=== PATIENT | female | born 1950 | race Caucasian/White ===

== ENCOUNTER 2020-05-02 15:46 | Inpatient (IN) | payer MEDICARE, OTHER ==
--- NOTE | 2020-05-02 17:31 | EDM.PDOC ---
ED HPI GENERAL MEDICAL PROBLEM - General Chief Complaint: Abdominal Pain Stated Complaint: LOWER ABDOMINAL PAIN AND BLEEDING Time Seen by Provider: 05/02/20 17:00 Source of Information: Reports: Patient, Family (), RN - History of Present Illness INITIAL COMMENTS - FREE TEXT/NARRATIVE: Milly presents with to ER for acute left mid abdominal pain. Milly has slight twisting pain last night when she was washing her feet. Milly was able to sleep last night and was scheduled for an Endoscopy this am. Milly had recurrence of her left mid/lower abdominal pain this am but proceeded to [place] for EGD. Milly ate breakfast around 10:30 in [place] after her procedure and report pain was much improved after EGD sedation. Milly had recurrence of severe pain in left mid and lower abdomen while driving home from [place] to [facility]. Milly has had numerous episodes of blood in her stool today (bright red/large amount per patient) with reported of looser BM this am without blood. Milly is a very poor historian and unable to give much for history due to pain, general weakness fatigue and feeling cold. is a very poor historian. Milly reports nausea without vomiting, weakness, feeling cold and left lower abdominal pain. Milly has had similar pain in the past but has resolved the 4-5 times in the past but has resolved. Milly has had numerous abdominal surgeries including: Hysterectomy w. oophorectomy, gallbladder removal, colon resection on 2014 due to diverticulosis, appendix removed and multiple bladder surgeries. Milly has chronic UTI on Macrodantin for prevention of infection. Milly was treated with Macrobid on Apr 23 for UTI x 7 days which improved her symptoms but has not offered resolution with continued urinary frequency. Abdominal Pain Score (Numeric/FACES): 9 - Related Data Allergies Allergy/AdvReac Type Severity Reaction Status Date / Time codeine Allergy Unknown Unknown Verified 05/02/20 16:41 adhesive Allergy Rash Verified 05/02/20 18:30 adhesive tape Allergy Rash Verified 05/02/20 18:30 latex Allergy Rash Verified 05/02/20 18:30 METALS Allergy Cannot Uncoded 05/02/20 18:30 Remember Home Meds: Home Meds Acetaminophen/HYDROcodone [[place] 325-5 MG] 1 - 2 tab PO Q6H PRN 5 Days #20 tab 05/02/20 [Rx] Aspirin [Low Dose Aspirin EC] 81 mg PO DAILY 05/02/20 [History] Doxycycline [Doxycycline Hyclate] 100 mg PO ASDIRECTED 05/02/20 [History] Levothyroxine [Synthroid] 88 mcg PO ACBREAKFAST 05/02/20 [History] amLODIPine Besylate [Amlodipine Besylate] 5 mg PO DAILY 05/02/20 [History] amLODIPine [Norvasc] 5 mg PO DAILY 05/02/20 [History] atenoloL [Atenolol] 50 mg PO DAILY 05/02/20 [History] atorvaSTATin [Lipitor] 10 mg PO BEDTIME 05/02/20 [History] lisinopriL [Prinivil] 20 mg PO BID 05/02/20 [History] nitrofurantoin macrocrystaL [Nitrofurantoin] 50 mg PO DAILY 05/02/20 [History] Past Medical History HEENT History: Reports: Cataract, Other (See Below) Other HEENT History: dry eye Cardiovascular History: Reports: High Cholesterol, Hypertension Respiratory History: Reports: None Gastrointestinal History: Reports: Cholelithiasis, Diverticulosis, GERD, Irritable Bowel Syndrome, PUD, Other (See Below) Other Gastrointestinal History: prolapsed rectum Genitourinary History: Reports: Urinary Incontinence, UTI, Recurrent, Other (See Below) Other Genitourinary History: chronic cystitis TRANSPORTATION ENGINEER History: Reports: Dysfunctional Uterine Bleeding, Fibroids, Prolapsed Uterus Musculoskeletal History: Reports: Arthritis, Back Pain, Chronic, Other (See Below) Other Musculoskeletal History: lumbar stenosis Psychiatric History: Reports: None Endocrine/Metabolic History: Reports: Hypothyroidism Hematologic History: Reports: Bleeding Disorder Immunologic History: Reports: None Oncologic (Cancer) History: Reports: None Dermatologic History: Reports: Other (See Below) Other Dermatologic History: rosacea - Infectious Disease History Infectious Disease History: Reports: None - Past Surgical History HEENT Surgical History: Reports: Adenoidectomy, Tonsillectomy GI Surgical History: Reports: Appendectomy, Cholecystectomy, Colon, Colonoscopy, EGD Other GI Surgeries/Procedures: colectomy 6 inches Female Surgical History: Reports: Hysterectomy, Salpingo-Oophorectomy Endocrine Surgical History: Reports: Thyroidectomy Neurological Surgical History: Reports: Lumbar Spine, Spinal Fusion Musculoskeletal Surgical History: Reports: Hip Replacement Other Musculoskeletal Surgeries/Procedures:: bilateral hips Social & Family History - Tobacco Use Smoking Status *Q: Former Smoker Used Tobacco, but Quit: Yes Month/Year Tobacco Last Used: years - Caffeine Use Caffeine Use: Reports: Coffee Caffeine Use Comment: occ - Recreational Drug Use Recreational Drug Use: No ED ROS GENERAL - Review of Systems Review Of Systems: Unable To Obtain (slwo to respond and is a very poor historian) Reason Not Obtained: acute illness/pain concerns ED EXAM, GI/ABD - Physical Exam Exam: See Below Exam Limited By: Other (slow to respond) General Appearance: Alert, WD/WN, Anxious, Lethargic, Mild Distress Eyes: Bilateral: Normal Appearance, EOMI Ears: Normal External Exam, Hearing Grossly Normal Nose: Normal Inspection Throat/Mouth: Normal Inspection, Normal Voice, No Airway Compromise Head: Normocephalic Neck: Normal Inspection Respiratory/Chest: Lungs Clear, Normal Breath Sounds Cardiovascular: Regular Rate, Rhythm, Bradycardia (HR 53-64), Other (thready pulse Poor IV access) GI/Abdominal Exam: Tender (entire abdomen with guarding and rebound discomfort. Focal tenderness left mid and lower abdomen) (Female) Exam: Deferred Rectal (Female) Exam: Deferred Back Exam: Normal Inspection. No: CVA Tenderness (R), CVA Tenderness (L) Extremities: Normal Inspection, Normal Range of Motion Neurological: Alert, Oriented, CN II-XII Intact, Slow to Respond Psychiatric: Flat Affect Skin Exam: Warm, Dry, Intact, Normal Color, Other (Pale) EKG INTERPRETATION EKG Date: 05/02/20 Time: 18:02 Rhythm: NSR Rate (Beats/Min): 62 [place]: Normal P-Wave: Present QRS: Normal ST-T: Other (Non specific ST Tave abnormalities with flipped T waves in V1-3) QT: Normal Comparison: NA - No Prior EKG (in [facility] system) Course - Vital Signs Last Recorded V/S: Last Vital Signs Temp 37.9 C 05/02/20 20:45 Pulse 79 05/02/20 21:16 Resp 17 05/02/20 20:45 BP 151/54 H 05/02/20 21:16 Pulse Ox 97 05/02/20 21:16 - Orders/Labs/Meds Orders: Active Orders 24 hr Category Date Time Status Cardiac Monitoring [RC] .As Directed Care 05/02/20 17:31 Active Cardiac Monitoring [RC] .As Directed Care 05/02/20 17:57 Active EKG Documentation Completion [RC] ASDIRECTED Care 05/02/20 17:32 Active Peripheral IV Care [RC] . DIRECTED Care 05/02/20 17:32 Active Vital Signs [RC] Q15M Care 05/02/20 17:57 Active Abdomen 1V Upright [CR] Stat Exams 05/02/20 18:01 Taken CULTURE BLOOD [BC] Stat Lab 05/02/20 18:00 Received CULTURE URINE [RM] Stat Lab 05/02/20 21:33 Ordered PATIENT RETYPE [BBK] Stat Lab 05/02/20 18:00 Results TYPE AND SCREEN [BBK] Stat Lab 05/02/20 18:00 Results Iopamidol [Isovue-300 (61%)] Med 05/02/20 19:00 Active 100 ml IV . DIRECTED Sodium Chloride 0.9% [Normal Saline] 1,000 ml Med 05/02/20 17:45 Active IV ASDIRECTED Sodium Chloride 0.9% [Normal Saline] 80 ml Med 05/02/20 19:00 Active IV ASDIRECTED Sodium Chloride 0.9% [Saline Flush] Med 05/02/20 17:31 Active 10 ml FLUSH ASDIRECTED PRN Peripheral IV Insertion Adult [OM.PC] Urgent Oth 05/02/20 17:31 Ordered EKG 12 Lead [EK] Urgent Ther 05/02/20 17:31 Ordered Medication Orders Sodium Chloride (Normal Saline) 1,000 mls @ 500 mls/hr IV ASDIRECTED [facility] Last Admin: 05/02/20 18:06 Dose: 500 mls/hr Documented by: PREILOR Sodium Chloride (Normal Saline) 80 mls @ 3 mls/sec IV ASDIRECTED [facility] Last Admin: 05/02/20 19:32 Dose: 3 mls/sec Documented by: JENNIFER Iopamidol (Isovue-300 (61%)) 100 ml IV . DIRECTED [facility] Last Admin: 05/02/20 19:32 Dose: 100 ml Documented by: JENNIFER Sodium Chloride (Saline Flush) 10 ml FLUSH ASDIRECTED PRN PRN Reason: Keep Vein Open Last Admin: 05/02/20 19:32 Dose: 10 ml Documented by: Admin: 09/28/20 18:13 Dose: 10 ml Documented by: PREILOR Labs: Laboratory Tests 05/02/20 05/02/20 05/02/20 Range/Units 18:00 18:00 18:00 WBC 10.2 (4.5-11.0) K/uL RBC 4.19 (3.30-5.50) M/uL Hgb 12.2 (12.0-15.0) g/dL Hct 38.7 (36.0-48.0) % MCV 92 (80-98) fL MCH 29 (27-31) pg MCHC 32 (32-36) % Plt Count 200 (150-400) K/uL Neut % (Auto) 89 H (36-66) % Lymph % (Auto) 6 L (24-44) % [place] % (Auto) 5 (2-6) % Eos % (Auto) 0 L (2-4) % Baso % (Auto) 0 (0-1) % Sodium (140-148) mmol/L Potassium (3.6-5.2) mmol/L Chloride (100-108) mmol/L Carbon Dioxide (21-32) mmol/L Anion Gap (5.0-14.0) mmol/L BUN (7-18) mg/dL Creatinine (0.6-1.0) mg/dL Est Cr Clr Drug Dosing mL/min Estimated GFR (MDRD) (>60) Glucose (74-106) mg/dL Lactic Acid 1.8 (0.4-2.0) mmol/L Calcium (8.5-10.1) mg/dL Total Bilirubin 0.4 (0.2-1.0) mg/dL Direct Bilirubin 0.17 (0.0-0.2) mg/dL Indirect Bilirubin 0.23 AST 20 (15-37) U/L ALT 32 (12-78) U/L Alkaline Phosphatase 79 (46-116) U/L Troponin I < 0.017 (0.000-0.056) ng/mL Total Protein 6.9 (6.4-8.2) g/dL Albumin 3.8 (3.4-5.0) g/dL Globulin 3.1 (2.3-3.5) g/dL Albumin/Globulin Ratio 1.2 (1.2-2.2) Lipase 76 (73-393) U/L Urine Color (YELLOW) Urine Appearance (CLEAR) Urine pH (5.0-8.0) Ur Specific [place] (1.008-1.030) Urine Protein (NEGATIVE) mg/dL Urine Glucose (UA) (NEGATIVE) mg/dL Urine Ketones (NEGATIVE) mg/dL Urine Occult Blood (NEGATIVE) Urine Nitrite (NEGATIVE) Urine Bilirubin (NEGATIVE) Urine Urobilinogen (0.2-1.0) EU/dL Ur Leukocyte Esterase (NEGATIVE) Urine RBC (0-5) Urine WBC (0-5) Ur Epithelial Cells Amorphous Sediment Urine Bacteria Urine Mucus Blood Type Gel Antibody Screen 05/02/20 05/02/20 05/02/20 Range/Units 18:00 18:00 21:05 WBC (4.5-11.0) K/uL RBC (3.30-5.50) M/uL Hgb (12.0-15.0) g/dL Hct (36.0-48.0) % MCV (80-98) fL MCH (27-31) pg MCHC (32-36) % Plt Count (150-400) K/uL Neut % (Auto) (36-66) % Lymph % (Auto) (24-44) % [place] % (Auto) (2-6) % Eos % (Auto) (2-4) % Baso % (Auto) (0-1) % Sodium 136 L (140-148) mmol/L Potassium 3.7 (3.6-5.2) mmol/L Chloride 101 (100-108) mmol/L Carbon Dioxide 21 (21-32) mmol/L Anion Gap 17.7 H (5.0-14.0) mmol/L BUN 14 (7-18) mg/dL Creatinine 1.2 H (0.6-1.0) mg/dL Est Cr Clr Drug Dosing 38.69 mL/min Estimated GFR (MDRD) 44 L (>60) Glucose 225 H (74-106) mg/dL Lactic Acid (0.4-2.0) mmol/L Calcium 8.9 (8.5-10.1) mg/dL Total Bilirubin (0.2-1.0) mg/dL Direct Bilirubin (0.0-0.2) mg/dL Indirect Bilirubin AST (15-37) U/L ALT (12-78) U/L Alkaline Phosphatase (46-116) U/L Troponin I (0.000-0.056) ng/mL Total Protein (6.4-8.2) g/dL Albumin (3.4-5.0) g/dL Globulin (2.3-3.5) g/dL Albumin/Globulin Ratio (1.2-2.2) Lipase (73-393) U/L Urine Color Yellow (YELLOW) Urine Appearance Clear (CLEAR) Urine pH 6.5 (5.0-8.0) Ur Specific [place] 1.020 (1.008-1.030) Urine Protein Negative (NEGATIVE) mg/dL Urine Glucose (UA) Negative (NEGATIVE) mg/dL Urine Ketones Negative (NEGATIVE) mg/dL Urine Occult Blood Negative (NEGATIVE) Urine Nitrite Negative (NEGATIVE) Urine Bilirubin Negative (NEGATIVE) Urine Urobilinogen 0.2 (0.2-1.0) EU/dL Ur Leukocyte Esterase Negative (NEGATIVE) Urine RBC 0-5 (0-5) Urine WBC 0-5 (0-5) Ur Epithelial Cells Not seen Amorphous Sediment Not seen Urine Bacteria Not seen Urine Mucus Not seen Blood Type A NEGATIVE Gel Antibody Screen Negative Meds: Medications Generic Name Dose Route Start Last Admin Trade Name Freq PRN Reason Stop Dose Admin Sodium Chloride 1,000 mls @ 500 mls/hr 05/02/20 17:45 05/02/20 18:06 Normal Saline IV 500 mls/hr ASDIRECTED MATHEW Administration Sodium Chloride 80 mls @ 3 mls/sec 05/02/20 19:00 05/02/20 19:32 Normal Saline IV 3 mls/sec ASDIRECTED MATHEW Administration Iopamidol 100 ml 05/02/20 19:00 05/02/20 19:32 Isovue-300 (61%) IV 100 ml . DIRECTED MATHEW Administration Sodium Chloride 10 ml 05/02/20 17:31 05/02/20 19:32 Saline Flush FLUSH 10 ml ASDIRECTED PRN Administration Keep Vein Open Discontinued Medications Generic Name Dose Route Start Last Admin Trade Name Freq PRN Reason Stop Dose Admin Acetaminophen 650 mg 05/02/20 21:20 05/02/20 21:30 Tylenol PO 05/02/20 21:21 650 mg NOW ONE Administration Fentanyl 50 mcg 05/02/20 17:35 05/02/20 18:11 Sublimaze IVPUSH 05/02/20 17:36 50 mcg ONETIME ONE Administration Hydromorphone HCl 0.5 mg 05/02/20 19:04 05/02/20 19:14 Dilaudid IVPUSH 05/02/20 19:05 0.5 mg ONETIME ONE Administration Hydromorphone HCl 0.5 mg 05/02/20 20:42 05/02/20 20:54 Dilaudid IVPUSH 05/02/20 20:43 0.5 mg ONETIME ONE Administration Metoclopramide HCl 5 mg 05/02/20 17:35 05/02/20 18:08 Reglan IV 05/02/20 17:36 5 mg ONETIME ONE Administration - Radiology Interpretation Free Text/Narrative:: Abd one view upright: No free air noted. - Re-Assessments/Exams Free Text/Narrative Re-Assessment/Exam: [facility] information obtained to review most recent CT abd/pelvis 2013 noting surgical history, and diverticulosis with unsure diverticulitis performed before colon resection. CT completed with contrast with no mention of vascular system to confirm health of aorta. Endoscopy report reviewed: Duodenal diverticulum not esophagitis. UA Apr 23 with UC Citrobacter Freundii which is Resistant to Augmentin/Cefazolin/Nitrofurantoin. Sensitive: Ceftriaxone, Ciprofloxacin, Gentamicin, Tobramycin and Bactrim. 05/02/20 17:40 Hgb appears to be 12.2 which is normal for patient. BMP missing and ordered at this time. CT Abd/pelvis with IV contrast being completed. 05/02/20 18:42 CT Abd/pelvis results available and reviewed with patient/ in addition to blood test which notes Gluc: greater than 200 Hgb and WBC are normal range. Dilaudid improved pain but pain remains. CT Abd/Pelvis notes non specific ascending, transverse and descending colitis. Fluid in colon consistent with diarrhea. Diverticulosis at hepatic flexure without evidence of acute diverticulitis. Stool sample was not available for testing. Patient passing bright blood per rectum and multiple occasions during ER visit. Discussed needing UA/UC, patient is unable urinate with distended bladder noted on CT images. Straight catheterization to empty bladder and obtain sample. Patient and to consider if feels ok to discharge or feels admission is needed for pain management and colitis concerns. 05/02/20 20:25 Milly would like to be discharged home at this time. Discussed oral pain medications for home use, patient may consider Naproxen or Ibuprofen if able to take with other medications. Milly is recommended to contact her PCP this week for evaluation to discuss cause of colitis which may benefit form stool studies/c dif testing. Urine has not signs of infection at this time. UC ordered and pending at this time. Discussed Augmentin for treatment of possible diverticulitis causing colitis but may complicate symptoms. Patient opted to hold off on antibiotics at this time, in light of recent Macrobid for UTI and Doxycycline for rosacea. 05/02/20 21:20 Departure - Departure Time of Disposition: 21:34 Disposition: Home, Self-Care 01 Clinical Impression: Colitis, Rectal bleeding - Discharge Information Prescriptions: Acetaminophen/HYDROcodone [[place] 325-5 MG] 1 - 2 tab PO Q6H PRN 5 Days #20 tab PRN Reason: Pain (Severe 7-10) Instructions: Rectal Bleeding, Colitis Referrals: Ivonne Dunham MD [Primary Care Provider] - Forms: ED Department Discharge Additional Instructions: 1. Your CT Abd/Pelvis was reviewed during visit and copy fo radiology report for follow-up with PCP. 2. Blood work was reviewed during visit and copy of results for follow-up with PCP. 3. Concerns regarding elevated blood sugar, colitis which may be infection (viral/bacterial) or inflammation. 4. Admission to hospital offered during Er visit due to severity of symptoms and pain. Urine and single blood culture was ordered during your visit, results may not be available for 5-7 days. 5. Supply to catch a stool sample to take to clinic of choice for testing to identify possible cause of colitis. 6. Tylenol recommended every 6 hr for fever and mild pain (caution with [place] w/ Tylenol). Max 4000mg x 24 hrs for brief period of time. 7. [place] 5/325 1-2 tablets every 6 horus for moderate to severe pain (Max 6 per 24 hours). 8. Return to [place] or go to preferred ER if symptoms are not improving or unable to follow-up with primary care provider this week. Sepsis Event Note (ED) - Evaluation Sepsis Screening Result: No Definite Risk - Focused Exam Vital Signs: Vital Signs Temp Pulse Resp BP Pulse Ox 05/02/20 21:16 79 151/54 H 97 05/02/20 20:45 37.9 C 78 17 146/52 H 97 05/02/20 20:44 77 146/52 H 93 L 05/02/20 20:14 74 130/39 L 05/02/20 19:00 71 125/55 L 05/02/20 18:37 73 107/37 L 05/02/20 18:15 64 112/38 L 05/02/20 17:45 64 104/56 L 05/02/20 17:14 59 L 109/63 05/02/20 16:55 54 L 90/37 L 05/02/20 16:43 56 L 100/40 L 98 05/02/20 16:37 35.6 C L 53 L 16 102/33 L 100 05/02/20 16:23 35.6 C L 53 L 16 102/33 L 100 - My Orders Last 24 Hours: My Active Orders 05/02/20 17:31 Cardiac Monitoring [RC] .As Directed Sodium Chloride 0.9% [Saline Flush] 10 ml FLUSH ASDIRECTED PRN Peripheral IV Insertion Adult [OM.PC] Urgent EKG 12 Lead [EK] Urgent 05/02/20 17:32 EKG Documentation Completion [RC] ASDIRECTED Peripheral IV Care [RC] . DIRECTED 05/02/20 17:45 Sodium Chloride 0.9% [Normal Saline] 1,000 ml IV ASDIRECTED 05/02/20 17:57 Cardiac Monitoring [RC] .As Directed Vital Signs [RC] Q15M 05/02/20 18:00 CULTURE BLOOD [BC] Stat PATIENT RETYPE [BBK] Stat TYPE AND SCREEN [BBK] Stat 05/02/20 18:01 Abdomen 1V Upright [CR] Stat 05/02/20 19:00 Iopamidol [Isovue-300 (61%)] 100 ml IV . DIRECTED Sodium Chloride 0.9% [Normal Saline] 80 ml IV ASDIRECTED 05/02/20 21:33 CULTURE URINE [RM] Stat - Assessment/Plan Last 24 Hours: My Active Orders 05/02/20 17:31 Cardiac Monitoring [RC] .As Directed Sodium Chloride 0.9% [Saline Flush] 10 ml FLUSH ASDIRECTED PRN Peripheral IV Insertion Adult [OM.PC] Urgent EKG 12 Lead [EK] Urgent 05/02/20 17:32 EKG Documentation Completion [RC] ASDIRECTED Peripheral IV Care [RC] . DIRECTED 05/02/20 17:45 Sodium Chloride 0.9% [Normal Saline] 1,000 ml IV ASDIRECTED 05/02/20 17:57 Cardiac Monitoring [RC] .As Directed Vital Signs [RC] Q15M 05/02/20 18:00 CULTURE BLOOD [BC] Stat PATIENT RETYPE [BBK] Stat TYPE AND SCREEN [BBK] Stat 05/02/20 18:01 Abdomen 1V Upright [CR] Stat 05/02/20 19:00 Iopamidol [Isovue-300 (61%)] 100 ml IV . DIRECTED Sodium Chloride 0.9% [Normal Saline] 80 ml IV ASDIRECTED 05/02/20 21:33 CULTURE URINE [RM] Stat
[2020-05-02] MEDS ORDERED: fentaNYL 100 MCG/2 ML SDV IVPUSH ONE (17:35)
[2020-05-02] MEDS ORDERED: Metoclopramide 10 MG/2 ML SDV IV ONE (17:35)
[2020-05-02] MEDS ORDERED: Sodium Chloride 0.9% 1,000 ML IV SCH (17:45)
[2020-05-02] MEDS: Sodium Chloride 0.9% 10 ML Syringe FLUSH PRN ×2 (18:13→19:32)
[2020-05-02] MEDS ORDERED: Sodium Chloride 0.9% 80 ML IV SCH (19:00)
[2020-05-02] MEDS ORDERED: Iopamidol 612 MG/ML 100 ML Bottle IV SCH (19:00)
[2020-05-02] MEDS ORDERED: HYDROmorphone 0.5 MG/0.5 ML Syringe IVPUSH ONE ×2 (19:04→20:42)
--- NOTE | 2020-05-02 20:11 | CRLCT ---
INDICATION: Abdominal pain status post endoscopy performed earlier today TECHNIQUE: CT abdomen and pelvis acquired with 100 cc Isovue IV contrast. COMPARISON: None FINDINGS: Lower chest: Unremarkable. Liver: Unremarkable. Spleen: Unremarkable. Pancreas: Unremarkable. Gallbladder and bile ducts: S/p cholecystectomy. Adrenal glands: Unremarkable. Kidneys: Unremarkable. GI tract: Mild fat stranding around the distal ascending, transverse, and descending colon. The mid to distal sigmoid colon is not clearly seen due to significant streak artifact from bilateral hip arthroplasty hardware. Anastomotic suture is seen at the level of the distal sigmoid colon. There is minimal diverticulosis at the hepatic flexure. There is fluid within the colon but no colonic distension. The appendix is not visualized. There is a duodenal diverticulum. Vascular structures: Moderate atherosclerotic disease. Lymph nodes: Unremarkable. Miscellaneous: Unremarkable. No free air or significant free fluid. Pelvic Organs: Unremarkable. Bones: Status post ORIF L3-L4. Status post bilateral hip arthroplasties. IMPRESSION: Mild fat stranding around the distal ascending, transverse, and descending colon likely represents a nonspecific colitis. No evidence for acute diverticulitis. Fluid in the colon consistent with diarrhea. Status post cholecystectomy, ORIF L3-L4, and bilateral hip arthroplasties. Please note that all CT scans at this facility use dose modulation, iterative reconstruction, and/or weight-based dosing when appropriate to reduce radiation dose to as low as reasonably achievable. Dictated by Karen Parks MD @ May 02 2020 8:10PM Signed by Dr. Karen Parks @ May 02 2020 8:10PM
[2020-05-02] MEDS ORDERED: Acetaminophen 325 MG Tab PO ONE (21:20)
[2020-05-02] MEDS ORDERED: Promethazine 12.5 MG in Sodium Chloride 0.9% 50 ML IV PRN (22:36)
[2020-05-02] MEDS ORDERED: 50% Dextrose in Water 50 ML Syringe IV ONE (22:59)
--- NOTE | 2020-05-02 23:25 | PCM.HP.2 ---
H&P History of Present Illness - General Date of Service: 05/02/20 Admit Problem/Dx: Admission Diagnosis/Problem Admission Diagnosis/Problem Colitis Source of Information: Patient, Old Records History Limitations: Reports: No Limitations - History of Present Illness Initial Comments - Free Text/Narative: Patient is a 70yo female with PMH of diet controlled T2 diabetes, GERD, sigmoidectomy due to diverticulitis, several bladder surgeries with chronic bladder infections, HTN and hypothyroidism who presents to the ED for abdominal pain and passage of blood. Patient was found in the ED to have colitis and several risk factors that make it likely to be caused from c. diff. The patient has been on daily cipro, doxycycline every 3 days, uses a PPI, and is over 65. Patient is unable in the ED to have a BM. Patient states she additionally has been treated for a UTI recently that is recurrent. It was found to be cintobacter and is resistant to several antibiotics, but is sensitive to keflex and rocephin. Patient says she had an EGD for stomach pain and has not eaten a f ull meal since yesterday and believes this is part of why she is having abdominal pain and is not able to have a BM at this time. Onset of Symptoms: Reports: Today Symptom Onset Date: 05/02/20 Duration of Symptoms: Reports: Hour(s): Location: Reports: Abdomen Quality: Reports: Ache (colicy) Improves with: Reports: Rest Worsens with: Reports: Movement Context: Reports: Other (medication) Associated Symptoms: Reports: No Other Symptoms Abdominal Pain Score (Numeric/FACES): 9 - Related Data Allergies/Adverse Reactions: Allergies Allergy/AdvReac Type Severity Reaction Status Date / Time codeine Allergy Unknown Unknown Verified 05/02/20 16:41 adhesive Allergy Rash Verified 05/02/20 18:30 adhesive tape Allergy Rash Verified 05/02/20 18:30 latex Allergy Rash Verified 05/02/20 18:30 METALS Allergy Cannot Uncoded 05/02/20 18:30 Remember Home Medications: Home Meds Acetaminophen/HYDROcodone [[place] 325-5 MG] 1 - 2 tab PO Q6H PRN 5 Days #20 tab 05/02/20 [Rx] Aspirin [Low Dose Aspirin EC] 81 mg PO DAILY 05/02/20 [History] Doxycycline [Doxycycline Hyclate] 100 mg PO ASDIRECTED 05/02/20 [History] Levothyroxine [Synthroid] 88 mcg PO ACBREAKFAST 05/02/20 [History] amLODIPine Besylate [Amlodipine Besylate] 5 mg PO DAILY 05/02/20 [History] amLODIPine [Norvasc] 5 mg PO DAILY 05/02/20 [History] atenoloL [Atenolol] 50 mg PO DAILY 05/02/20 [History] atorvaSTATin [Lipitor] 10 mg PO BEDTIME 05/02/20 [History] lisinopriL [Prinivil] 20 mg PO BID 05/02/20 [History] nitrofurantoin macrocrystaL [Nitrofurantoin] 50 mg PO DAILY 05/02/20 [History] Past Medical History HEENT History: Reports: Cataract, Other (See Below) Other HEENT History: dry eye Cardiovascular History: Reports: High Cholesterol, Hypertension Respiratory History: Reports: None Gastrointestinal History: Reports: Cholelithiasis, Diverticulosis, GERD, Irritable Bowel Syndrome, PUD, Other (See Below) Other Gastrointestinal History: prolapsed rectum Genitourinary History: Reports: Urinary Incontinence, UTI, Recurrent, Other (See Below) Other Genitourinary History: chronic cystitis PIPER HELPER History: Reports: Dysfunctional Uterine Bleeding, Fibroids, Prolapsed Uterus Musculoskeletal History: Reports: Arthritis, Back Pain, Chronic, Other (See Below) Other Musculoskeletal History: lumbar stenosis Psychiatric History: Reports: None Endocrine/Metabolic History: Reports: Hypothyroidism Hematologic History: Reports: Bleeding Disorder Immunologic History: Reports: None Oncologic (Cancer) History: Reports: None Dermatologic History: Reports: Other (See Below) Other Dermatologic History: rosacea - Infectious Disease History Infectious Disease History: Reports: None - Past Surgical History HEENT Surgical History: Reports: Adenoidectomy, Tonsillectomy GI Surgical History: Reports: Appendectomy, Cholecystectomy, Colon, Colonoscopy, EGD Other GI Surgeries/Procedures: colectomy 6 inches Female Surgical History: Reports: Hysterectomy, Salpingo-Oophorectomy Endocrine Surgical History: Reports: Thyroidectomy Neurological Surgical History: Reports: Lumbar Spine, Spinal Fusion Musculoskeletal Surgical History: Reports: Hip Replacement Other Musculoskeletal Surgeries/Procedures:: bilateral hips Social & Family History - Tobacco Use Smoking Status *Q: Former Smoker Used Tobacco, but Quit: Yes Month/Year Tobacco Last Used: years - Caffeine Use Caffeine Use: Reports: Coffee Caffeine Use Comment: occ - Recreational Drug Use Recreational Drug Use: No H&P Review of Systems - Review of Systems: Review Of Systems: See Below General: Reports: No Symptoms HEENT: Reports: No Symptoms Pulmonary: Reports: No Symptoms Cardiovascular: Reports: No Symptoms Gastrointestinal: Reports: Abdominal Pain, Bloody Stool, Diarrhea, Nausea Genitourinary: Reports: Dysuria, Frequency, Pain, Urgency, Other (several bladder surgeries) Musculoskeletal: Reports: No Symptoms Skin: Reports: No Symptoms Psychiatric: Reports: No Symptoms Neurological: Reports: No Symptoms Hematologic/Lymphatic: Reports: No Symptoms Immunologic: Reports: No Symptoms Exam - Exam Exam: See Below - Vital Signs Vital Signs: Last Vital Signs Temp 37.9 C 05/02/20 20:45 Pulse 77 05/02/20 22:52 Resp 17 05/02/20 20:45 BP 131/48 L 05/02/20 22:52 Pulse Ox 97 05/02/20 21:16 Weight: 77.111 kg - Exam General: Alert, Oriented, 4 HEENT: PERRLA, Hearing Intact, Mucosa Moist & Goessel, Nares Patent, Normal Nasal Septum, Posterior Pharynx Clear, Conjunctiva Clear, EOMI, EACs Clear, TMs Clear Neck: Supple, Trachea Midline, 2 Lungs: Clear to Auscultation, Normal Respiratory Effort Cardiovascular: Regular Rate, Regular Rhythm GI/Abdominal Exam: Normal Bowel Sounds, Soft, No Distention, Tender. No: Gua rding (Female) Exam: Deferred Rectal (Female) Exam: Deferred Back Exam: Normal Inspection, Full Range of Motion, NT Extremities: Normal Inspection, Normal Range of Motion, Non-Tender, No Pedal Edema, Normal Capillary Refill Skin: Warm, Dry, Intact Neurological: Cranial Nerves Intact, Reflexes Equal Bilateral Neuro Extensive - Mental Status: Alert, Oriented x3, Normal Mood/Affect, Normal Cognition Neuro Extensive - Motor, Sensory, Reflexes: CN II-XII Intact, Normal Gait, Normal Reflexes Psychiatric: Alert, Normal Affect, Normal Mood - Patient Data Lab Results Last 24 hrs: Laboratory Results - last 24 hr 05/02/20 05/02/20 05/02/20 Range/Units 18:00 18:00 18:00 WBC 10.2 (4.5-11.0) K/uL RBC 4.19 (3.30-5.50) M/uL Hgb 12.2 (12.0-15.0) g/dL Hct 38.7 (36.0-48.0) % MCV 92 (80-98) fL MCH 29 (27-31) pg MCHC 32 (32-36) % Plt Count 200 (150-400) K/uL Neut % (Auto) 89 H (36-66) % Lymph % (Auto) 6 L (24-44) % [place] % (Auto) 5 (2-6) % Eos % (Auto) 0 L (2-4) % Baso % (Auto) 0 (0-1) % Sodium (140-148) mmol/L Potassium (3.6-5.2) mmol/L Chloride (100-108) mmol/L Carbon Dioxide (21-32) mmol/L Anion Gap (5.0-14.0) mmol/L BUN (7-18) mg/dL Creatinine (0.6-1.0) mg/dL Est Cr Clr Drug Dosing mL/min Estimated GFR (MDRD) (>60) Glucose (74-106) mg/dL Lactic Acid 1.8 (0.4-2.0) mmol/L Calcium (8.5-10.1) mg/dL Total Bilirubin 0.4 (0.2-1.0) mg/dL Direct Bilirubin 0.17 (0.0-0.2) mg/dL Indirect Bilirubin 0.23 AST 20 (15-37) U/L ALT 32 (12-78) U/L Alkaline Phosphatase 79 (46-116) U/L Troponin I < 0.017 (0.000-0.056) ng/mL Total Protein 6.9 (6.4-8.2) g/dL Albumin 3.8 (3.4-5.0) g/dL Globulin 3.1 (2.3-3.5) g/dL Albumin/Globulin Ratio 1.2 (1.2-2.2) Lipase 76 (73-393) U/L Urine Color (YELLOW) Urine Appearance (CLEAR) Urine pH (5.0-8.0) Ur Specific [place] (1.008-1.030) Urine Protein (NEGATIVE) mg/dL Urine Glucose (UA) (NEGATIVE) mg/dL Urine Ketones (NEGATIVE) mg/dL Urine Occult Blood (NEGATIVE) Urine Nitrite (NEGATIVE) Urine Bilirubin (NEGATIVE) Urine Urobilinogen (0.2-1.0) EU/dL Ur Leukocyte Esterase (NEGATIVE) Urine RBC (0-5) Urine WBC (0-5) Ur Epithelial Cells Amorphous Sediment Urine Bacteria Urine Mucus Blood Type Gel Antibody Screen 05/02/20 05/02/20 05/02/20 Range/Units 18:00 18:00 21:05 WBC (4.5-11.0) K/uL RBC (3.30-5.50) M/uL Hgb (12.0-15.0) g/dL Hct (36.0-48.0) % MCV (80-98) fL MCH (27-31) pg MCHC (32-36) % Plt Count (150-400) K/uL Neut % (Auto) (36-66) % Lymph % (Auto) (24-44) % [place] % (Auto) (2-6) % Eos % (Auto) (2-4) % Baso % (Auto) (0-1) % Sodium 136 L (140-148) mmol/L Potassium 3.7 (3.6-5.2) mmol/L Chloride 101 (100-108) mmol/L Carbon Dioxide 21 (21-32) mmol/L Anion Gap 17.7 H (5.0-14.0) mmol/L BUN 14 (7-18) mg/dL Creatinine 1.2 H (0.6-1.0) mg/dL Est Cr Clr Drug Dosing 38.69 mL/min Estimated GFR (MDRD) 44 L (>60) Glucose 225 H (74-106) mg/dL Lactic Acid (0.4-2.0) mmol/L Calcium 8.9 (8.5-10.1) mg/dL Total Bilirubin (0.2-1.0) mg/dL Direct Bilirubin (0.0-0.2) mg/dL Indirect Bilirubin AST (15-37) U/L ALT (12-78) U/L Alkaline Phosphatase (46-116) U/L Troponin I (0.000-0.056) ng/mL Total Protein (6.4-8.2) g/dL Albumin (3.4-5.0) g/dL Globulin (2.3-3.5) g/dL Albumin/Globulin Ratio (1.2-2.2) Lipase (73-393) U/L Urine Color Yellow (YELLOW) Urine Appearance Clear (CLEAR) Urine pH 6.5 (5.0-8.0) Ur Specific [place] 1.020 (1.008-1.030) Urine Protein Negative (NEGATIVE) mg/dL Urine Glucose (UA) Negative (NEGATIVE) mg/dL Urine Ketones Negative (NEGATIVE) mg/dL Urine Occult Blood Negative (NEGATIVE) Urine Nitrite Negative (NEGATIVE) Urine Bilirubin Negative (NEGATIVE) Urine Urobilinogen 0.2 (0.2-1.0) EU/dL Ur Leukocyte Esterase Negative (NEGATIVE) Urine RBC 0-5 (0-5) Urine WBC 0-5 (0-5) Ur Epithelial Cells Not seen Amorphous Sediment Not seen Urine Bacteria Not seen Urine Mucus Not seen Blood Type A NEGATIVE Gel Antibody Screen Negative Result Diagrams: 05/02/20 18:00 05/02/20 18:00 EKG INTERPRETATION EKG Date: 05/02/20 Sepsis Event Note - Evaluation Sepsis Screening Result: No Definite Risk - Focused Exam Vital Signs: Vital Signs Temp Pulse Resp BP Pulse Ox 05/02/20 22:52 77 131/48 L 05/02/20 22:32 81 135/48 L 05/02/20 21:16 79 151/54 H 97 05/02/20 20:45 37.9 C 78 17 146/52 H 97 05/02/20 20:44 77 146/52 H 93 L 05/02/20 20:14 74 130/39 L 05/02/20 19:00 71 125/55 L 05/02/20 18:37 73 107/37 L 05/02/20 18:15 64 112/38 L 05/02/20 17:45 64 104/56 L 05/02/20 17:14 59 L 109/63 05/02/20 16:55 54 L 90/37 L 05/02/20 16:43 56 L 100/40 L 98 05/02/20 16:37 35.6 C L 53 L 16 102/33 L 100 05/02/20 16:23 35.6 C L 53 L 16 102/33 L 100 - Problem List (1) C. difficile colitis SNOMED Code(s): 971385561 ICD Code: A04.72 - ENTEROCOLITIS D/T CLOSTRIDIUM DIFFICILE, NOT SPCF RECUR Status: Acute Priority: High Current Visit: Yes Onset Date: Unknown P matias Details: POA, patient has several risk factors for C. diff colitis and is having pain and CT shows signs of colitis. Will treat with 125mg QID of oral vancomycin, fluids, and probiotics (2) Colitis SNOMED Code(s): 60832274 ICD Code: K52.9 - NONINFECTIVE GASTROENTERITIS AND COLITIS, UNSPECIFIED S tatus: Acute Current Visit: Yes Onset Date: Unknown Problem Details: Will treat as a presumptive positive c. diff colitis as patient has several risk factors for C. diff colitis and is unable to have a BM (3) Recurrent UTI SNOMED Code(s): 445327186 ICD Code: N39.0 - URINARY TRACT INFECTION, SITE NOT SPECIFIED Status: Acute Current Visit: Yes Onset Date: Unknown Problem Details: Patient has recurrent UTIs because of several bladder surgeries, will treat current UTI based on available sensitivities from [place]. Patient's UTI is sensitive to keflex and rocephin. Will use keflex (4) GERD (gastroesophageal reflux disease) SNOMED Code(s): 431831004 ICD Code: K21.9 - GASTRO-ESOPHAGEAL REFLUX DISEASE WITHOUT ESOPHAGITIS Status: Acute Current Visit: Yes Problem Details: Will have patient use pepcid in hospital for gerd as PPIs increase risk of C. diff Qualifiers: Esophagitis presence: esophagitis presence not specified Qualified Code(s): K21.9 - Gastro-esophageal reflux disease without esophagitis (5) Diabetes mellitus SNOMED Code(s): 66985430 ICD Code: E11.9 - TYPE 2 DIABETES MELLITUS WITHOUT COMPLICATIONS Status: Acute Current Visit: Yes Onset Date: Unknown Problem Details: Patient states she was recently told she has type 2 diabetes but has not been started on any medications or treatments. Will order BID BG checks and will have SSI available if needed Qualifiers: Diabetes mellitus type: type 2 Diabetes mellitus shelter insulin use: without rodent exterminator use Diabetes mellitus complication status: without complication Qualified Code(s): E11.9 - Type 2 diabetes mellitus without complications (6) HTN (hypertension) SNOMED Code(s): 40869165 ICD Code: I10 - ESSENTIAL (PRIMARY) HYPERTENSION Status: Acute Current Visit: Yes Onset Date: Unknown Problem Details: will continue patient's home medications of amlodipine, lisinopril and atenolol Qualifiers: Hypertension type: essential hypertension Qualified Code(s): I10 - Essential (primary) hypertension (7) HLD (hyperlipidemia) SNOMED Code(s): 96022124 ICD Code: E78.5 - HYPERLIPIDEMIA, UNSPECIFIED Status: Acute Current Visit: Yes Onset Date: Unknown Problem Details: Will continue patient's lipitor Qualifiers: Hyperlipidemia type: unspecified Qualified Code(s): E78.5 - Hyperlipidemia, unspecified (8) Hypothyroidism SNOMED Code(s): 56860683 ICD Code: E03.9 - HYPOTHYROIDISM, UNSPECIFIED Status: Acute Current Visit: Yes Onset Date: Unknown Problem Details: will continue patient's home levothyroxine Qualifiers: Hypothyroidism type: unspecified Qualified Code(s): E03.9 - Hypothyroidism, unspecified (9) Rectal bleeding SNOMED Code(s): 82330189 ICD Code: K62.5 - HEMORRHAGE OF ANUS AND RECTUM Status: Acute Current Visit: Yes Onset Date: Unknown Problem Details: Patient's symptoms likely due to colitis, that is likely due to medication/antibiotic induced c. diff. Kasi l treat colitis and c. diff. Problem List Initiated/Reviewed/Updated: Yes Orders Last 24hrs: Active Orders 24 hr Category Date Time Status Patient Status Manage Transfer [TRANSFER] Routine ADT 05/02/20 23:18 Ordered Patient Status [ADT] Routine ADT 05/02/20 22:54 Active Ambulate [RC] QID Care 05/02/20 22:36 Active Ambulate [RC] QID Care 05/02/20 22:36 Active Blood Glucose Check, Bedside [RC] BIDMEALS Care 05/02/20 22:59 Active Cardiac Monitoring [RC] .As Directed Care 05/02/20 17:31 Active Cardiac Monitoring [RC] .As Directed Care 05/02/20 17:57 Active Communication Order [RC] PER UNIT ROUTINE Care 05/02/20 22:59 Active Diabetes Education [RC] Click to Edit Care 05/02/20 22:59 Active EKG Documentation Completion [RC] ASDIRECTED Care 05/02/20 17:32 Active May Shower [RC] ASDIRECTED Care 05/02/20 22:36 Active Oxygen Therapy [RC] PRN Care 05/02/20 22:54 Active Peripheral IV Care [RC] . DIRECTED Care 05/02/20 17:32 Active Pulse Oximetry [RC] CONTINUOUS Care 05/02/20 22:56 Active Up ad [place] [RC] ASDIRECTED Care 05/02/20 22:36 Active VTE/DVT Education [RC] Per Unit Routine Care 05/02/20 22:54 Active Vital Signs [RC] Q15M Care 05/02/20 17:57 Active Vital Signs [RC] Q4H Care 05/02/20 22:54 Active Consistent Carbohydrate Diet [DIET] Diet 05/02/20 Breakfast Active Abdomen 1V Upright [CR] Stat Exams 05/02/20 18:01 Taken CBC WITH AUTO DIFF [HEME] AM Lab 05/03/20 05:11 Ordered COMPREHENSIVE METABOLIC PN,CMP [CHEM] AM Lab 05/03/20 05:11 Ordered CULTURE BLOOD [BC] Stat Lab 05/02/20 18:00 Received CULTURE STOOL + SHIGATOX [RM] Stat Lab 05/02/20 23:02 Ordered CULTURE URINE [RM] Stat Lab 05/02/20 21:35 Received PATIENT RETYPE [BBK] Stat Lab 05/02/20 18:00 Results TYPE AND SCREEN [BBK] Stat Lab 05/02/20 18:00 Results Acetaminophen [TylenoL] Med 05/02/20 22:36 Ordered 650 mg PO Q4H PRN Dextrose 50% in Water Med 05/02/20 22:59 Once 50 ml IV ONETIME ONE Insulin Lispro [HumaLOG] Med 05/03/20 07:00 Ordered See Protocol SUBCUT QIDACANDBED Iopamidol [Isovue-300 (61%)] Med 05/02/20 19:00 Active 100 ml IV . DIRECTED Lactobacillus Rhamnosus GG [Culturelle] Med 05/03/20 09:00 Ordered 2 cap PO BID Levothyroxine [Synthroid] Med 05/03/20 07:30 Ordered 88 mcg PO ACBREAKFAST Morphine Med 05/02/20 22:36 Ordered 4 mg IVPUSH Q2H PRN NS + KCl 20mEq/L [Normal Saline with 20 mEq KCl] 1,000 Med 05/02/20 23:15 Ordered ml IV ASDIRECTED Ondansetron [Zofran ODT] Med 05/02/20 22:36 Ordered 4 mg PO Q6H PRN Promethazine [Phenergan] 12.5 mg Med 05/02/20 22:36 Ordered Sodium Chloride 0.9% [Normal Saline] 50 ml IV Q6H Sodium Chloride 0.9% [Normal Saline] 1,000 ml Med 05/02/20 17:45 Active IV ASDIRECTED Sodium Chloride 0.9% [Normal Saline] 80 ml Med 05/02/20 19:00 Active IV ASDIRECTED Sodium Chloride 0.9% [Saline Flush] Med 05/02/20 17:31 Active 10 ml FLUSH ASDIRECTED PRN Vancomycin [Vancocin 250 MG/5 ML Soln] Med 05/03/20 06:00 Ordered 500 mg PO QID amLODIPine [Norvasc] Med 05/03/20 09:00 Ordered 5 mg PO DAILY atenoloL [Tenormin] Med 05/03/20 09:00 Ordered 50 mg PO DAILY atorvaSTATin [Lipitor] Med 05/03/20 21:00 Ordered 10 mg PO BEDTIME cephALEXin [Keflex] Med 05/03/20 04:00 Ordered 500 mg PO Q6HR lisinopriL [Prinivil] Med 05/03/20 09:00 Ordered 10 mg PO DAILY oxyCODONE Med 05/02/20 22:36 Ordered 10 mg PO Q4H PRN Peripheral IV Insertion Adult [OM.PC] Urgent Oth 05/02/20 17:31 Ordered Resuscitation Status Routine Resus Stat 05/02/20 22:36 Ordered EKG 12 Lead [EK] Urgent Ther 05/02/20 17:31 Ordered Medication Orders Acetaminophen (Tylenol) 650 mg PO Q4H PRN PRN Reason: Pain (Mild 1-3)/fever Amlodipine Besylate (Norvasc) 5 mg PO DAILY MATHEW Atenolol (Tenormin) 50 mg PO DAILY MATHEW Atorvastatin Calcium (Lipitor) 10 mg PO BEDTIME MATHEW Cephalexin (Keflex) 500 mg PO Q6HR MATHEW Dextrose/Water (Dextrose 50% In Water) 50 ml IV ONETIME ONE Stop: 05/02/20 23:00 Sodium Chloride (Normal Saline) 1,000 mls @ 500 mls/hr IV ASDIRECTED MATHEW Last Admin: 05/02/20 18:06 Dose: 500 mls/hr Documented by: PREILOR Sodium Chloride (Normal Saline) 80 mls @ 3 mls/sec IV ASDIRECTED MATHEW Last Admin: 05/02/20 19:32 Dose: 3 mls/sec Documented by: JENNIFER Promethazine HCl 12.5 mg/ (Sodium Chloride) 50.5 mls @ 200 mls/hr IV Q6H PRN PRN Reason: Nausea/Vomiting Potassium Chloride/Sodium Chloride (Normal Saline With 20 Meq Kcl) 1,000 mls @ 100 mls/hr IV ASDIRECTED [facility] Insulin Human Lispro (Humalog) 0 unit SUBCUT QIDACANDBED [facility]; Protocol Iopamidol (Isovue-300 (61%)) 100 ml IV . DIRECTED [facility] Last Admin: 05/02/20 19:32 Dose: 100 ml Documented by: JENNIFER Lactobacillus Rhamnosus (Culturelle) 2 cap PO BID [facility] Levothyroxine Sodium (Synthroid) 88 mcg PO ACBREAKFAST [facility] Lisinopril (Prinivil) 10 mg PO DAILY [facility] Morphine Sulfate (Morphine) 4 mg IVPUSH Q2H PRN PRN Reason: Pain (severe 7-10) Ondansetron HCl (Zofran Odt) 4 mg PO Q6H PRN PRN Reason: Nausea able to take PO Oxycodone HCl (Oxycodone) 10 mg PO Q4H PRN PRN Reason: Pain (moderate 4-6) Sodium Chloride (Saline Flush) 10 ml FLUSH ASDIRECTED PRN PRN Reason: Keep Vein Open Last Admin: 05/02/20 19:32 Dose: 10 ml Documented by: Admin: 05/02/20 18:13 Dose: 10 ml Documented by: PREILOR Vancomycin HCl (Vancocin 250 Mg/5 Ml Soln) 500 mg PO QID [facility] - Mortality Measure Prognosis:: Good
[2020-05-02] MEDS: oxyCODONE 5 MG Tab PO PRN (23:52)
[2020-05-03] MEDS ORDERED: Vancomycin 1 GM SDV ONE (00:07)
[2020-05-03] MEDS: Vancomycin 250 MG/5 ML ML Oral Solution PO SCH ×2 (00:27→05:01)
[2020-05-03] MEDS: Famotidine 20 MG Tab PO SCH ×2 (00:27→08:47)
[2020-05-03] MEDS: NS + KCl 20mEq/L 1,000 ML IV SCH ×2 (00:38→13:27)
[2020-05-03] MEDS: Morphine 4 MG/ML Syringe IVPUSH PRN ×3 (02:47→08:50)
[2020-05-03] MEDS: Cephalexin 250 MG Cap PO SCH ×2 (04:46→09:36)
[2020-05-03] MEDS ORDERED: Vancomycin 250 MG/5 ML ML Oral Solution PO SCH (06:00)
[2020-05-03] MEDS: Levothyroxine 88 MCG Tab PO SCH (07:48)
[2020-05-03] MEDS: Insulin Lispro 100 Unit/ML 3 ML KwikPen SUBCUT SCH ×4 (07:57→20:44)
[2020-05-03] MEDS: Lisinopril 10 MG Tab PO SCH (08:47)
[2020-05-03] MEDS: Lactobacillus Rhamnosus GG (Probiotic) Cap PO SCH ×2 (08:47→20:43)
[2020-05-03] MEDS: amLODIPine 5 MG Tab PO SCH (08:48)
[2020-05-03] MEDS: Atenolol 25 MG Tab PO SCH (08:48)
--- NOTE | 2020-05-03 08:54 | CR ---
Abdomen 1V Upright CLINICAL HISTORY: Abdominal pain FINDINGS: No free air is identified. Small intestinal gas pattern is nonacute. The transverse colon appears thickened. There are surgical clips in the right upper quadrant IMPRESSION: Thickened transverse colon suggests colitis Nonacute small intestinal gas pattern
[2020-05-03] MEDS: Ondansetron 4 MG Tab.DIS PO PRN (09:20)
[2020-05-03] MEDS: Acetaminophen 325 MG Tab PO PRN ×2 (09:35→20:45)
[2020-05-03] MEDS ORDERED: Vancomycin 125 MG Cap PO SCH (10:00)
[2020-05-03] MEDS: Pantoprazole 40 MG Vial IVPUSH SCH ×2 (10:41→22:15)
[2020-05-03] MEDS: Ciprofloxacin in D5W 400 MG in Premix Bag 1 BAG IV SCH ×4 (10:47→22:15)
[2020-05-03] MEDS ORDERED: Bisacodyl 5 MG Tab PO ONE ×2 (11:00→20:00)
[2020-05-03] MEDS: metroNIDAZOLE/Normal Saline 500 MG in Premix Bag 1 BAG IV SCH ×2 (12:02→20:42)
--- NOTE | 2020-05-03 14:28 | PCM.PN ---
- General Info Date of Service: 05/03/20 Subjective Update: Ms. Gallegos is a 70-year-old woman who was admitted yesterday evening by Dr. Alicia with abdominal pain and hematochezia. She did undergo EGD yesterday morning at [facility] in [place], other than a duodenal diverticuli no other significant abnormalities were identified. On the way home she began to experience left lower quadrant abdominal pain this and this was associated with hematochezia after she arrived home she had several more bloody bowel movements with ongoing pain at home and presented to the emergency department for further evaluation. Hemoglobin was noted to be fairly stable, CT scan showed evidence of nonspecific colitis essentially involving the entire colon but worse in the transverse colon. She is never had similar symptoms or findings in the past. She does take chronic antibiotic therapy for recurrent urinary tract infections. Stool for C. difficile has been obtained and is negative, other studies are pending. Report from the EGD was obtained and showed no obvious complications or significant hypotension occurring during the case. She continues to experience abdominal pain although it is improved from admission and she has had recurrent bloody stools since admission. Hemoglobin is dropped slightly, the most of which is likely secondary to dilution with IV fluids. Functional Status: Reports: Urinating - Review of Systems General: Reports: Fever, Weakness, Malaise. Denies: Chills Pulmonary: Reports: No Symptoms Cardiovascular: Reports: No Symptoms Gastrointestinal: Reports: Abdominal Pain, Diarrhea, Hematochezia, Nausea. Denies: Constipation, Decreased Appetite, Difficulty Swallowing, Melena, Vomiting - Patient Data Vitals - Most Recent: Last Vital Signs Temp 100.2 F 05/03/20 12:00 Pulse 76 05/03/20 08:48 Resp 16 05/03/20 12:00 BP 119/47 L 05/03/20 12:00 Pulse Ox 91 L 05/03/20 12:00 Weight - Most Recent: 175 lb 11.194 oz I&O - Last 24 Hours: Intake & Output 05/02/20 05/03/20 05/03/20 22:59 06:59 14:59 Intake Total 406 Output Total 730 Balance 406 -730 Lab Results Last 24 Hours: Laboratory Results - last 24 hr 05/02/20 05/02/20 05/02/20 Range/Units 18:00 18:00 18:00 WBC 10.2 (4.5-11.0) K/uL RBC 4.19 (3.30-5.50) M/uL Hgb 12.2 (12.0-15.0) g/dL Hct 38.7 (36.0-48.0) % MCV 92 (80-98) fL MCH 29 (27-31) pg MCHC 32 (32-36) % Plt Count 200 (150-400) K/uL Neut % (Auto) 89 H (36-66) % Lymph % (Auto) 6 L (24-44) % Russell % (Auto) 5 (2-6) % Eos % (Auto) 0 L (2-4) % Baso % (Auto) 0 (0-1) % Sodium (140-148) mmol/L Potassium (3.6-5.2) mmol/L Chloride (100-108) mmol/L Carbon Dioxide (21-32) mmol/L Anion Gap (5.0-14.0) mmol/L BUN (7-18) mg/dL Creatinine (0.6-1.0) mg/dL Est Cr Clr Drug Dosing mL/min Estimated GFR (MDRD) (>60) Glucose (74-106) mg/dL Lactic Acid 1.8 (0.4-2.0) mmol/L Calcium (8.5-10.1) mg/dL Total Bilirubin 0.4 (0.2-1.0) mg/dL Direct Bilirubin 0.17 (0.0-0.2) mg/dL Indirect Bilirubin 0.23 AST 20 (15-37) U/L ALT 32 (12-78) U/L Alkaline Phosphatase 79 (46-116) U/L Troponin I < 0.017 (0.000-0.056) ng/mL Total Protein 6.9 (6.4-8.2) g/dL Albumin 3.8 (3.4-5.0) g/dL Globulin 3.1 (2.3-3.5) g/dL Albumin/Globulin Ratio 1.2 (1.2-2.2) Lipase 76 (73-393) U/L Urine Color (YELLOW) Urine Appearance (CLEAR) Urine pH (5.0-8.0) Ur Specific [place] (1.008-1.030) Urine Protein (NEGATIVE) mg/dL Urine Glucose (UA) (NEGATIVE) mg/dL Urine Ketones (NEGATIVE) mg/dL Urine Occult Blood (NEGATIVE) Urine Nitrite (NEGATIVE) Urine Bilirubin (NEGATIVE) Urine Urobilinogen (0.2-1.0) EU/dL Ur Leukocyte Esterase (NEGATIVE) Urine RBC (0-5) Urine WBC (0-5) Ur Epithelial Cells Amorphous Sediment Urine Bacteria Urine Mucus Blood Type Gel Antibody Screen 05/02/20 05/02/20 05/02/20 Range/Units 18:00 18:00 21:05 WBC (4.5-11.0) K/uL RBC (3.30-5.50) M/uL Hgb (12.0-15.0) g/dL Hct (36.0-48.0) % MCV (80-98) fL MCH (27-31) pg MCHC (32-36) % Plt Count (150-400) K/uL Neut % (Auto) (36-66) % Lymph % (Auto) (24-44) % Russell % (Auto) (2-6) % Eos % (Auto) (2-4) % Baso % (Auto) (0-1) % Sodium 136 L (140-148) mmol/L Potassium 3.7 (3.6-5.2) mmol/L Chloride 101 (100-108) mmol/L Carbon Dioxide 21 (21-32) mmol/L Anion Gap 17.7 H (5.0-14.0) mmol/L BUN 14 (7-18) mg/dL Creatinine 1.2 H (0.6-1.0) mg/dL Est Cr Clr Drug Dosing 38.69 mL/min Estimated GFR (MDRD) 44 L (>60) Glucose 225 H (74-106) mg/dL Lactic Acid (0.4-2.0) mmol/L Calcium 8.9 (8.5-10.1) mg/dL Total Bilirubin (0.2-1.0) mg/dL Direct Bilirubin (0.0-0.2) mg/dL Indirect Bilirubin AST (15-37) U/L ALT (12-78) U/L Alkaline Phosphatase (46-116) U/L Troponin I (0.000-0.056) ng/mL Total Protein (6.4-8.2) g/dL Albumin (3.4-5.0) g/dL Globulin (2.3-3.5) g/dL Albumin/Globulin Ratio (1.2-2.2) Lipase (73-393) U/L Urine Color Yellow (YELLOW) Urine Appearance Clear (CLEAR) Urine pH 6.5 (5.0-8.0) Ur Specific [place] 1.020 (1.008-1.030) Urine Protein Negative (NEGATIVE) mg/dL Urine Glucose (UA) Negative (NEGATIVE) mg/dL Urine Ketones Negative (NEGATIVE) mg/dL Urine Occult Blood Negative (NEGATIVE) Urine Nitrite Negative (NEGATIVE) Urine Bilirubin Negative (NEGATIVE) Urine Urobilinogen 0.2 (0.2-1.0) EU/dL Ur Leukocyte Esterase Negative (NEGATIVE) Urine RBC 0-5 (0-5) Urine WBC 0-5 (0-5) Ur Epithelial Cells Not seen Amorphous Sediment Not seen Urine Bacteria Not seen Urine Mucus Not seen Blood Type A NEGATIVE Gel Antibody Screen Negative 05/03/20 05/03/20 Range/Units 05:49 05:49 WBC 13.3 H (4.5-11.0) K/uL RBC 3.78 (3.30-5.50) M/uL Hgb 11.1 L (12.0-15.0) g/dL Hct 34.9 L (36.0-48.0) % MCV 92 (80-98) fL MCH 29 (27-31) pg MCHC 32 (32-36) % Plt Count 187 (150-400) K/uL Neut % (Auto) 87 H (36-66) % Lymph % (Auto) 5 L (24-44) % Russell % (Auto) 7 H (2-6) % Eos % (Auto) 0 L (2-4) % Baso % (Auto) 0 (0-1) % Sodium 134 L (140-148) mmol/L Potassium 3.6 (3.6-5.2) mmol/L Chloride 102 (100-108) mmol/L Carbon Dioxide 20 L (21-32) mmol/L Anion Gap 15.6 H (5.0-14.0) mmol/L BUN 9 (7-18) mg/dL Creatinine 0.9 (0.6-1.0) mg/dL Est Cr Clr Drug Dosing 51.59 mL/min Estimated GFR (MDRD) > 60 (>60) Glucose 193 H (74-106) mg/dL Lactic Acid (0.4-2.0) mmol/L Calcium 8.7 (8.5-10.1) mg/dL Total Bilirubin 0.4 (0.2-1.0) mg/dL Direct Bilirubin (0.0-0.2) mg/dL Indirect Bilirubin AST 33 (15-37) U/L ALT 39 (12-78) U/L Alkaline Phosphatase 70 (46-116) U/L Troponin I (0.000-0.056) ng/mL Total Protein 6.3 L (6.4-8.2) g/dL Albumin 3.2 L (3.4-5.0) g/dL Globulin 3.1 (2.3-3.5) g/dL Albumin/Globulin Ratio 1.0 L (1.2-2.2) Lipase (73-393) U/L Urine Color (YELLOW) Urine Appearance (CLEAR) Urine pH (5.0-8.0) Ur Specific [place] (1.008-1.030) Urine Protein (NEGATIVE) mg/dL Urine Glucose (UA) (NEGATIVE) mg/dL Urine Ketones (NEGATIVE) mg/dL Urine Occult Blood (NEGATIVE) Urine Nitrite (NEGATIVE) Urine Bilirubin (NEGATIVE) Urine Urobilinogen (0.2-1.0) EU/dL Ur Leukocyte Esterase (NEGATIVE) Urine RBC (0-5) Urine WBC (0-5) Ur Epithelial Cells Amorphous Sediment Urine Bacteria Urine Mucus Blood Type Gel Antibody Screen Eladio Results Last 24 Hours: Microbiology 05/03/20 00:30 Clostridioides difficile (PCR) - Final Stool / Feces Med Orders - Current: Current Medications Acetaminophen (Tylenol) 650 mg PO Q4H PRN PRN Reason: Pain (Mild 1-3)/fever Last Admin: 05/03/20 09:35 Dose: 650 mg Documented by: Amlodipine Besylate (Norvasc) 5 mg PO DAILY [facility] Last Admin: 05/03/20 08:48 Dose: 5 mg Documented by: Atenolol (Tenormin) 50 mg PO DAILY [facility] Last Admin: 05/03/20 08:48 Dose: 50 mg Documented by: Atorvastatin Calcium (Lipitor) 10 mg PO BEDTIME [facility] Promethazine HCl 12.5 mg/ (Sodium Chloride) 50.5 mls @ 200 mls/hr IV Q6H PRN PRN Reason: Nausea/Vomiting Potassium Chloride/Sodium Chloride (Normal Saline With 20 Meq Kcl) 1,000 mls @ 100 mls/hr IV ASDIRECTED [facility] Last Admin: 05/03/20 13:27 Dose: 100 mls/hr Documented by: Ciprofloxacin/Dextrose 400 mg/ (Premix) 200 mls @ 200 mls/hr IV Q12H [facility] Last Admin: 05/03/20 10:47 Dose: 200 mls/hr Documented by: Metronidazole 500 mg/ Premix 100 mls @ 100 mls/hr IV Q8H [facility] Last Admin: 05/03/20 12:02 Dose: 100 mls/hr Documented by: Insulin Human Lispro (Humalog) 0 unit SUBCUT QIDACANDBED [facility]; Protocol Last Admin: 05/03/20 11:24 Dose: 1 unit Documented by: Lactobacillus Rhamnosus (Culturelle) 2 cap PO BID [facility] Last Admin: 05/03/20 08:47 Dose: 2 cap Documented by: Levothyroxine Sodium (Synthroid) 88 mcg PO ACBREAKFAST [facility] Last Admin: 05/03/20 07:48 Dose: 88 mcg Documented by: Lisinopril (Prinivil) 10 mg PO DAILY [facility] Last Admin: 05/03/20 08:47 Dose: 10 mg Documented by: Morphine Sulfate (Morphine) 4 mg IVPUSH Q2H PRN PRN Reason: Pain (severe 7-10) Last Admin: 05/03/20 08:50 Dose: 4 mg Documented by: Ondansetron HCl (Zofran Odt) 4 mg PO Q6H PRN PRN Reason: Nausea able to take PO Last Admin: 05/03/20 09:20 Dose: 4 mg Documented by: Oxycodone HCl (Oxycodone) 10 mg PO Q4H PRN PRN Reason: Pain (moderate 4-6) Last Admin: 05/02/20 23:52 Dose: 10 mg Documented by: Pantoprazole Sodium (Protonix Iv) 40 mg IVPUSH Q12H [facility] Last Admin: 05/03/20 10:41 Dose: 40 mg Documented by: Discontinued Medications Acetaminophen (Tylenol) 650 mg PO NOW ONE Stop: 05/02/20 21:21 Last Admin: 05/02/20 21:30 Dose: 650 mg Documented by: Bisacodyl (Dulcolax) 10 mg PO ONETIME ONE Stop: 05/03/20 11:01 Last Admin: 05/03/20 11:22 Dose: 10 mg Documented by: Bisacodyl (Dulcolax) 10 mg PO ONETIME ONE Stop: 05/03/20 20:01 Cephalexin (Keflex) 500 mg PO Q6HR [facility] Last Admin: 05/03/20 09:36 Dose: 500 mg Documented by: Dextrose/Water (Dextrose 50% In Water) 50 ml IV ONETIME ONE Stop: 05/02/20 23:00 Last Admin: 05/03/20 00:44 Dose: Not Given Documented by: Famotidine (Pepcid) 20 mg PO BID [facility] Last Admin: 05/03/20 08:47 Dose: 20 mg Documented by: Fentanyl (Sublimaze) 50 mcg IVPUSH ONETIME ONE Stop: 05/02/20 17:36 Last Admin: 05/02/20 18:11 Dose: 50 mcg Documented by: Hydromorphone HCl (Dilaudid) 0.5 mg IVPUSH ONETIME ONE Stop: 05/02/20 19:05 Last Admin: 05/02/20 19:14 Dose: 0.5 mg Documented by: Hydromorphone HCl (Dilaudid) 0.5 mg IVPUSH ONETIME ONE Stop: 05/02/20 20:43 Last Admin: 05/02/20 20:54 Dose: 0.5 mg Documented by: Sodium Chloride (Normal Saline) 1,000 mls @ 500 mls/hr IV ASDIRECTED [facility] Last Admin: 05/02/20 18:06 Dose: 500 mls/hr Documented by: Sodium Chloride (Normal Saline) 80 mls @ 3 mls/sec IV ASDIRECTED [facility] Last Admin: 05/02/20 19:32 Dose: 3 mls/sec Documented by: Iopamidol (Isovue-300 (61%)) 100 ml IV . DIRECTED [facility] Last Admin: 05/02/20 19:32 Dose: 100 ml Documented by: Metoclopramide HCl (Reglan) 5 mg IV ONETIME ONE Stop: 05/02/20 17:36 Last Admin: 05/02/20 18:08 Dose: 5 mg Documented by: Polyethylene Glycol (Miralax) 238 gm PO ONETIME ONE Stop: 05/03/20 17:01 Sodium Chloride (Saline Flush) 10 ml FLUSH ASDIRECTED PRN PRN Reason: Keep Vein Open Last Admin: 05/02/20 19:32 Dose: 10 ml Documented by: Vancomycin HCl (Vancocin 250 Mg/5 Ml Soln) 500 mg PO QID [facility] Vancomycin HCl (Vancocin 250 Mg/5 Ml Soln) 125 mg PO QID [facility] Last Admin: 05/03/20 05:01 Dose: 125 mg Documented by: Vancomycin HCl (Vancomycin) Confirm Administered Dose 1 gm .ROUTE .STK-MED ONE Stop: 05/03/20 00:08 Last Admin: 05/03/20 07:29 Dose: Not Given Documented by: Vancomycin HCl (Vancocin 125 Mg Capsule) 125 mg PO QID [facility] Last Admin: 05/03/20 09:36 Dose: 125 mg Documented by: - Exam Quality Assessment: DVT Prophylaxis General: Alert, Oriented, Cooperative, Moderate Distress Lungs: Clear to Auscultation, Normal Respiratory Effort Cardiovascular: Regular Rate, Regular Rhythm, No Murmurs GI/Abdominal Exam: Soft, No Organomegaly, Tender. No: Distended, Guarding, Rigid, Rebound Extremities: Non-Tender, No Pedal Edema Sepsis Event Note - Evaluation Sepsis Screening Result: No Definite Risk - Focused Exam Vital Signs: Vital Signs Temp Temp Pulse Pulse Resp BP BP 05/03/20 12:00 100.2 F 16 119/47 L 05/03/20 10:05 99.9 F 05/03/20 09:35 100.8 F H 05/03/20 08:48 76 132/63 05/03/20 08:47 132/63 05/03/20 08:00 99.9 F 77 11 L 132/63 05/03/20 05:54 100.6 F 77 15 135/56 L 05/03/20 02:42 100.7 F H 84 17 Pulse Ox 05/03/20 12:00 91 L 05/03/20 10:05 05/03/20 09:35 05/03/20 08:48 05/03/20 08:47 05/03/20 08:00 92 L 05/03/20 05:54 93 L 05/03/20 02:42 96 - Problem List Review Problem List Initiated/Reviewed/Updated: Yes - My Orders Last 24 Hours: My Active Orders 05/03/20 10:54 Consult to Physician [CONS] Routine 05/03/20 10:56 Notify Provider Consults [RC] ASDIRECTED 05/03/20 10:58 Schedule Procedure [COMM] Routine 05/03/20 11:00 Ciprofloxacin in D5W [Cipro in D5W 400 MG/200 ML] 400 mg Premix Bag 1 bag IV Q12H Pantoprazole [ProTONIX IV] 40 mg IVPUSH Q12H 05/03/20 12:00 metroNIDAZOLE/Normal Saline [Flagyl 500 MG in NS 100 ML] 500 mg Premix Bag 1 bag IV Q8H 05/03/20 17:00 HGB [HEMOGLOBIN] [HEME] Stat 05/04/20 05:00 BASIC METABOLIC PANEL,BMP [CHEM] Timed CBC WITH AUTO DIFF [HEME] Timed 05/04/20 Breakfast Nothing per Oral After Midnight Diet [DIET] - Plan Plan:: ASSESSMENT AND PLAN COLITIS WITH HEMATOCHEZIA-symptoms and onset would be very consistent with ischemic colitis. CT scan does not necessarily fit with an ischemic pattern. Possible underlying infectious process. Difficile is negative. -Consult Dr. Caldera for surgical follow-up and colonoscopy when appropriate -N.p.o. -IV fluids for hydration -Pain and nausea medication as needed -Serial hemoglobin levels -IV ciprofloxacin and metronidazole URINARY TRACT INFECTION-recent positive urinalysis with positive culture -Antibiotic therapy with ciprofloxacin should provide adequate coverage for recent infection TYPE 2 DIABETES MELLITUS -4 times daily glucometers -Low-dose sliding scale Humalog MAINTENANCE ISSUES -DVT prophylaxis; SCUDS, hold on anticoagulation because of active bleeding -GI prophylaxis; Protonix 40 mg IV twice daily -Gleason catheter; not indicated -Nutrition; n.p.o. -Nicotine dependence; not required CODE STATUS-FULL CODE ADMISSION STATUS-patient will be admitted to inpatient status, expect at least a 2 night hospital stay for evaluation and management of problems as outlined above. At the time of this admission I do not reasonably expected evaluation and management of this problem will require more than a 96 hour hospital stay. DISPOSITION-anticipate discharge to home after the hospital stay. PRIMARY CARE PROVIDER-Ivonne Lyles
[2020-05-03] MEDS: oxyCODONE 5 MG Tab PO PRN ×2 (14:33→20:43)
[2020-05-03] MEDS ORDERED: Polyethylene Glycol 3350 Powder 238 GM Bot PO ONE (17:00)
[2020-05-03] MEDS: atorvaSTATin 10 MG Tab PO SCH (20:46)
[2020-05-04] MEDS: NS + KCl 20mEq/L 1,000 ML IV SCH ×2 (00:22→11:17)
[2020-05-04] MEDS: metroNIDAZOLE/Normal Saline 500 MG in Premix Bag 1 BAG IV SCH ×3 (03:56→19:22)
[2020-05-04] MEDS: Acetaminophen 325 MG Tab PO PRN (04:00)
[2020-05-04] MEDS: oxyCODONE 5 MG Tab PO PRN ×3 (04:00→20:44)
[2020-05-04] MEDS: Insulin Lispro 100 Unit/ML 3 ML KwikPen SUBCUT SCH ×4 (07:25→21:03)
[2020-05-04] MEDS: Levothyroxine 88 MCG Tab PO SCH (07:25)
[2020-05-04] MEDS: Lactobacillus Rhamnosus GG (Probiotic) Cap PO SCH ×2 (09:01→20:44)
[2020-05-04] MEDS: amLODIPine 5 MG Tab PO SCH (09:04)
[2020-05-04] MEDS: Lisinopril 10 MG Tab PO SCH (09:04)
[2020-05-04] MEDS: Atenolol 25 MG Tab PO SCH (09:04)
[2020-05-04] MEDS: Ciprofloxacin in D5W 400 MG in Premix Bag 1 BAG IV SCH ×4 (11:21→23:23)
[2020-05-04] MEDS ORDERED: Sodium Chloride 0.9% 10 ML Syringe FLUSH ONE (11:52)
[2020-05-04] MEDS ORDERED: Iopamidol 612 MG/ML 100 ML Bottle IV SCH (12:00)
[2020-05-04] MEDS ORDERED: Sodium Chloride 0.9% 75 ML IV SCH (12:00)
[2020-05-04] MEDS: Pantoprazole 40 MG Vial IVPUSH SCH ×2 (12:50→23:22)
--- NOTE | 2020-05-04 12:58 | CT ---
CT Abdomen Pelvis w Cont CLINICAL HISTORY: Persistent abdominal pain and hematochezia COMPARISON: 05/02/2020. TECHNIQUE: Axial tomographic images are obtained from the dome of the diaphragm to the pubic symphysis with IV contrast enhancement. No oral contrast was used. Auto dosage reduction and iterative reconstruction techniques employed. FINDINGS: There is persistent diffuse mucosal swelling throughout the the colon. There may be some cecal sparing. There is diffuse pericolic stranding. There is no free fluid. No intraperitoneal air is identified. The lung bases remain clear. The liver shows no mass. There is mild intrahepatic ductal prominence related to previous cholecystectomy.. The spleen has a normal size and shape. There is free intraperitoneal fluid around the liver and spleen. The pancreas shows no mass or inflammatory change. The adrenal glands are normal bilaterally. The kidneys show no mass, stones or hydronephrosis. Ureters have a normal course and caliber. The aorta shows some atheromatous change and distal ectasia. There is no suspicious retroperitoneal adenopathy. IMPRESSION: Persistent diffuse colonic mucosal swelling with pericolic inflammatory changes. 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
--- NOTE | 2020-05-04 15:58 | PCM.PN ---
- General Info Date of Service: 05/04/20 Subjective Update: Ms. Gallegos has remained hemodynamically stable over the last 24 hours. Much less red blood per rectum and moderate improvement in abdominal pain from admission. Hemoglobin has shown a slow drop consistent with some ongoing bleeding. Functional Status: Reports: Ambulating, Urinating - Review of Systems General: Reports: Weakness. Denies: Fever, Chills Pulmonary: Reports: No Symptoms Cardiovascular: Reports: No Symptoms Gastrointestinal: Reports: Abdominal Pain, Decreased Appetite, Diarrhea, Hematochezia. Denies: Difficulty Swallowing, Melena, Nausea, Vomiting - Patient Data Vitals - Most Recent: Last Vital Signs Temp 98.6 F 05/04/20 11:00 Pulse 67 05/04/20 11:00 Resp 16 05/04/20 11:00 BP 136/65 05/04/20 11:00 Pulse Ox 96 05/04/20 08:19 Weight - Most Recent: 175 lb 11.194 oz I&O - Last 24 Hours: Intake & Output 05/04/20 05/04/20 05/04/20 06:59 14:59 22:59 Intake Total 1967 300 Output Total 900 250 Balance 1067 50 Lab Results Last 24 Hours: Laboratory Results - last 24 hr 05/03/20 05/03/20 05/04/20 Range/Units 16:10 16:40 05:00 WBC 12.6 H (4.5-11.0) K/uL RBC 3.16 L (3.30-5.50) M/uL Hgb 10.3 L 9.6 L (12.0-15.0) g/dL Hct 29.5 L (36.0-48.0) % MCV 93 (80-98) fL MCH 30 (27-31) pg MCHC 33 (32-36) % Plt Count 148 L (150-400) K/uL Neut % (Auto) 81 H (36-66) % Lymph % (Auto) 9 L (24-44) % Woods % (Auto) 9 H (2-6) % Eos % (Auto) 0 L (2-4) % Baso % (Auto) 0 (0-1) % Sodium (140-148) mmol/L Potassium (3.6-5.2) mmol/L Chloride (100-108) mmol/L Carbon Dioxide (21-32) mmol/L Anion Gap (5.0-14.0) mmol/L BUN (7-18) mg/dL Creatinine (0.6-1.0) mg/dL Est Cr Clr Drug Dosing mL/min Estimated GFR (MDRD) (>60) Glucose (74-106) mg/dL POC Glucose (74-106) MG/DL Calcium (8.5-10.1) mg/dL SARS-CoV-2 RNA (MANNY) Negative (NEGATIVE) 05/04/20 05/04/20 05/04/20 Range/Units 05:00 08:15 11:30 WBC (4.5-11.0) K/uL RBC (3.30-5.50) M/uL Hgb (12.0-15.0) g/dL Hct (36.0-48.0) % MCV (80-98) fL MCH (27-31) pg MCHC (32-36) % Plt Count (150-400) K/uL Neut % (Auto) (36-66) % Lymph % (Auto) (24-44) % Woods % (Auto) (2-6) % Eos % (Auto) (2-4) % Baso % (Auto) (0-1) % Sodium 130 L (140-148) mmol/L Potassium 3.6 (3.6-5.2) mmol/L Chloride 100 (100-108) mmol/L Carbon Dioxide 21 (21-32) mmol/L Anion Gap 12.6 (5.0-14.0) mmol/L BUN 7 (7-18) mg/dL Creatinine 0.7 (0.6-1.0) mg/dL Est Cr Clr Drug Dosing 66.22 mL/min Estimated GFR (MDRD) > 60 (>60) Glucose 139 H (74-106) mg/dL POC Glucose 141 H 137 H (74-106) MG/DL Calcium 8.4 L (8.5-10.1) mg/dL SARS-CoV-2 RNA (MANNY) (NEGATIVE) Eladio Results Last 24 Hours: Microbiology 05/02/20 23:02 Stool Culture - Preliminary Stool / Feces NORMAL ENTERIC FAHEEM 1 DAY Shiga Toxin I - Final NEGATIVE FOR SHIGA TOXIN 1 Shiga Toxin II - Final NEGATIVE FOR SHIGA TOXIN 2 REFERENCE RANGE: NEGATIVE 05/02/20 21:35 Urine Culture - Preliminary Urine, Catheterized NO GROWTH AFTER 1 DAY 05/02/20 18:00 Aerobic Blood Culture - Preliminary Blood - Venous - Iv Start NO GROWTH AFTER 1 DAY Anaerobic Blood Culture - Preliminary NO GROWTH AFTER 1 DAY Med Orders - Current: Current Medications Acetaminophen (Tylenol) 650 mg PO Q4H PRN PRN Reason: Pain (Mild 1-3)/fever Last Admin: 05/04/20 04:00 Dose: 650 mg Documented by: Amlodipine Besylate (Norvasc) 5 mg PO DAILY [facility] Last Admin: 05/04/20 09:04 Dose: 5 mg Documented by: Atenolol (Tenormin) 50 mg PO DAILY [facility] Last Admin: 05/04/20 09:04 Dose: 50 mg Documented by: Atorvastatin Calcium (Lipitor) 10 mg PO BEDTIME [facility] Last Admin: 05/03/20 20:46 Dose: 10 mg Documented by: Fluconazole (Diflucan) 100 mg PO ONETIME ONE Stop: 05/04/20 15:54 Promethazine HCl 12.5 mg/ (Sodium Chloride) 50.5 mls @ 200 mls/hr IV Q6H PRN PRN Reason: Nausea/Vomiting Potassium Chloride/Sodium Chloride (Normal Saline With 20 Meq Kcl) 1,000 mls @ 100 mls/hr IV ASDIRECTED [facility] Last Admin: 05/04/20 11:17 Dose: 100 mls/hr Documented by: Ciprofloxacin/Dextrose 400 mg/ (Premix) 200 mls @ 200 mls/hr IV Q12H [facility] Last Admin: 05/04/20 11:21 Dose: 200 mls/hr Documented by: Metronidazole 500 mg/ Premix 100 mls @ 100 mls/hr IV Q8H [facility] Last Admin: 05/04/20 12:51 Dose: 100 mls/hr Documented by: Sodium Chloride (Normal Saline) 75 mls @ 3 mls/sec IV ASDIRECTED [facility] Last Admin: 05/04/20 12:02 Dose: 3 mls/sec Documented by: Insulin Human Lispro (Humalog) 0 unit SUBCUT QIDACANDBED [facility]; Protocol Last Admin: 05/04/20 12:08 Dose: Not Given Documented by: Iopamidol (Isovue-300 (61%)) 100 ml IV . DIRECTED [facility] Last Admin: 05/04/20 12:02 Dose: 100 ml Documented by: Lactobacillus Rhamnosus (Culturelle) 2 cap PO BID [facility] Last Admin: 05/04/20 09:01 Dose: 2 cap Documented by: Levothyroxine Sodium (Synthroid) 88 mcg PO ACBREAKFAST [facility] Last Admin: 05/04/20 07:25 Dose: 88 mcg Documented by: Lisinopril (Prinivil) 10 mg PO DAILY [facility] Last Admin: 05/04/20 09:04 Dose: 10 mg Documented by: Morphine Sulfate (Morphine) 4 mg IVPUSH Q2H PRN PRN Reason: Pain (severe 7-10) Last Admin: 05/03/20 08:50 Dose: 4 mg Documented by: Ondansetron HCl (Zofran Odt) 4 mg PO Q6H PRN PRN Reason: Nausea able to take PO Last Admin: 05/03/20 09:20 Dose: 4 mg Documented by: Oxycodone HCl (Oxycodone) 10 mg PO Q4H PRN PRN Reason: Pain (moderate 4-6) Last Admin: 05/04/20 13:04 Dose: 10 mg Documented by: Pantoprazole Sodium (Protonix Iv) 40 mg IVPUSH Q12H [facility] Last Admin: 05/04/20 12:50 Dose: 40 mg Documented by: Discontinued Medications Acetaminophen (Tylenol) 650 mg PO NOW ONE Stop: 05/02/20 21:21 Last Admin: 05/02/20 21:30 Dose: 650 mg Documented by: Bisacodyl (Dulcolax) 10 mg PO ONETIME ONE Stop: 05/03/20 11:01 Last Admin: 05/03/20 11:22 Dose: 10 mg Documented by: Bisacodyl (Dulcolax) 10 mg PO ONETIME ONE Stop: 05/03/20 20:01 Cephalexin (Keflex) 500 mg PO Q6HR [facility] Last Admin: 05/03/20 09:36 Dose: 500 mg Documented by: Dextrose/Water (Dextrose 50% In Water) 50 ml IV ONETIME ONE Stop: 05/02/20 23:00 Last Admin: 05/03/20 00:44 Dose: Not Given Documented by: Famotidine (Pepcid) 20 mg PO BID [facility] Last Admin: 05/03/20 08:47 Dose: 20 mg Documented by: Fentanyl (Sublimaze) 50 mcg IVPUSH ONETIME ONE Stop: 05/02/20 17:36 Last Admin: 05/02/20 18:11 Dose: 50 mcg Documented by: Hydromorphone HCl (Dilaudid) 0.5 mg IVPUSH ONETIME ONE Stop: 05/02/20 19:05 Last Admin: 05/02/20 19:14 Dose: 0.5 mg Documented by: Hydromorphone HCl (Dilaudid) 0.5 mg IVPUSH ONETIME ONE Stop: 05/02/20 20:43 Last Admin: 05/02/20 20:54 Dose: 0.5 mg Documented by: Sodium Chloride (Normal Saline) 1,000 mls @ 500 mls/hr IV ASDIRECTED [facility] Last Admin: 05/02/20 18:06 Dose: 500 mls/hr Documented by: Sodium Chloride (Normal Saline) 80 mls @ 3 mls/sec IV ASDIRECTED [facility] Last Admin: 05/02/20 19:32 Dose: 3 mls/sec Documented by: Iopamidol (Isovue-300 (61%)) 100 ml IV . DIRECTED [facility] Last Admin: 05/02/20 19:32 Dose: 100 ml Documented by: Metoclopramide HCl (Reglan) 5 mg IV ONETIME ONE Stop: 05/02/20 17:36 Last Admin: 05/02/20 18:08 Dose: 5 mg Documented by: Polyethylene Glycol (Miralax) 238 gm PO ONETIME ONE Stop: 05/03/20 17:01 Sodium Chloride (Saline Flush) 10 ml FLUSH ASDIRECTED PRN PRN Reason: Keep Vein Open Last Admin: 05/02/20 19:32 Dose: 10 ml Documented by: Sodium Chloride (Saline Flush) 10 ml FLUSH ONETIME ONE Stop: 05/04/20 11:53 Last Admin: 05/04/20 12:02 Dose: 10 ml Documented by: Vancomycin HCl (Vancocin 250 Mg/5 Ml Soln) 500 mg PO QID [facility] Vancomycin HCl (Vancocin 250 Mg/5 Ml Soln) 125 mg PO QID [facility] Last Admin: 05/03/20 05:01 Dose: 125 mg Documented by: Vancomycin HCl (Vancomycin) Confirm Administered Dose 1 gm .ROUTE .STK-MED ONE Stop: 05/03/20 00:08 Last Admin: 05/03/20 07:29 Dose: Not Given Documented by: Vancomycin HCl (Vancocin 125 Mg Capsule) 125 mg PO QID [facility] Last Admin: 05/03/20 09:36 Dose: 125 mg Documented by: - Exam Quality Assessment: DVT Prophylaxis General: Alert, Oriented, Cooperative, Moderate Distress Lungs: Clear to Auscultation, Normal Respiratory Effort Cardiovascular: Regular Rate, Regular Rhythm GI/Abdominal Exam: Soft, No Organomegaly, No Distention, Tender. No: Guarding, Rigid, Rebound Extremities: Non-Tender, No Pedal Edema Sepsis Event Note - Evaluation Sepsis Screening Result: No Definite Risk - Focused Exam Vital Signs: Vital Signs Temp Pulse Pulse Resp BP BP Pulse Ox 05/04/20 11:00 98.6 F 67 16 136/65 05/04/20 09:04 72 129/62 05/04/20 08:19 96 05/04/20 07:28 98 F 72 15 129/62 96 05/04/20 05:26 100.1 F 05/04/20 04:00 100.5 F 72 17 144/55 H 97 - Problem List Review Problem List Initiated/Reviewed/Updated: Yes - My Orders Last 24 Hours: My Active Orders 05/04/20 Breakfast Nothing per Oral After Midnight Diet [DIET] 05/04/20 12:00 Iopamidol [Isovue-300 (61%)] 100 ml IV . DIRECTED Sodium Chloride 0.9% [Normal Saline] 75 ml IV ASDIRECTED 05/04/20 15:53 Fluconazole [Diflucan] 100 mg PO ONETIME ONE 05/04/20 15:55 Consult to Physician [CONS] Routine 05/04/20 15:56 Notify Provider Consults [RC] ASDIRECTED 05/04/20 16:30 GLUCOSE POC LAB TO COLLECT JPM [POC] QIDACANDBED 05/04/20 17:00 HGB [HEMOGLOBIN] [HEME] Stat 05/04/20 21:00 GLUCOSE POC LAB TO COLLECT JPM [POC] QIDACANDBED 05/05/20 05:00 BASIC METABOLIC PANEL,BMP [CHEM] Timed CBC WITH AUTO DIFF [HEME] Timed 05/05/20 07:30 GLUCOSE POC LAB TO COLLECT JPM [POC] QIDACANDBED 05/05/20 11:30 GLUCOSE POC LAB TO COLLECT JPM [POC] QIDACANDBED 05/05/20 16:30 GLUCOSE POC LAB TO COLLECT JPM [POC] QIDACANDBED 05/05/20 21:00 GLUCOSE POC LAB TO COLLECT JPM [POC] QIDACANDBED 05/06/20 07:30 GLUCOSE POC LAB TO COLLECT JPM [POC] QIDACANDBED 05/06/20 11:30 GLUCOSE POC LAB TO COLLECT JPM [POC] QIDACANDBED 05/06/20 16:30 GLUCOSE POC LAB TO COLLECT JPM [POC] QIDACANDBED 05/06/20 21:00 GLUCOSE POC LAB TO COLLECT JPM [POC] QIDACANDBED 05/07/20 07:30 GLUCOSE POC LAB TO COLLECT JPM [POC] QIDACANDBED 05/07/20 11:30 GLUCOSE POC LAB TO COLLECT JPM [POC] QIDACANDBED 05/07/20 16:30 GLUCOSE POC LAB TO COLLECT JPM [POC] QIDACANDBED 05/07/20 21:00 GLUCOSE POC LAB TO COLLECT JPM [POC] QIDACANDBED 05/08/20 07:30 GLUCOSE POC LAB TO COLLECT JPM [POC] QIDACANDBED 05/08/20 11:30 GLUCOSE POC LAB TO COLLECT JPM [POC] QIDACANDBED 05/08/20 16:30 GLUCOSE POC LAB TO COLLECT JPM [POC] QIDACANDBED 05/08/20 21:00 GLUCOSE POC LAB TO COLLECT JPM [POC] QIDACANDBED 05/09/20 07:30 GLUCOSE POC LAB TO COLLECT JPM [POC] QIDACANDBED 05/09/20 11:30 GLUCOSE POC LAB TO COLLECT JPM [POC] QIDACANDBED 05/09/20 16:30 GLUCOSE POC LAB TO COLLECT JPM [POC] QIDACANDBED 05/09/20 21:00 GLUCOSE POC LAB TO COLLECT JPM [POC] QIDACANDBED 05/10/20 07:30 GLUCOSE POC LAB TO COLLECT JPM [POC] QIDACANDBED 05/10/20 11:30 GLUCOSE POC LAB TO COLLECT JPM [POC] QIDACANDBED 05/10/20 16:30 GLUCOSE POC LAB TO COLLECT JPM [POC] QIDACANDBED - Plan Plan:: ASSESSMENT AND PLAN COLITIS WITH HEMATOCHEZIA-symptoms and onset would be very consistent with ischemic colitis. CT scan does not necessarily fit with an ischemic pattern. Possible underlying infectious process. Difficile is negative. -Consult Dr. Candelaria for surgical follow-up and colonoscopy when appropriate -N.p.o. -IV fluids for hydration -Pain and nausea medication as needed -Serial hemoglobin levels -IV ciprofloxacin and metronidazole URINARY TRACT INFECTION-recent positive urinalysis with positive culture -Antibiotic therapy with ciprofloxacin should provide adequate coverage for recent infection TYPE 2 DIABETES MELLITUS -4 times daily glucometers -Low-dose sliding scale Humalog MAINTENANCE ISSUES -DVT prophylaxis; SCUDS, hold on anticoagulation because of active bleeding -GI prophylaxis; Protonix 40 mg IV twice daily -Gleason catheter; not indicated -Nutrition; n.p.o. -Nicotine dependence; not required CODE STATUS-FULL CODE ADMISSION STATUS-patient will be admitted to inpatient status, expect at least a 2 night hospital stay for evaluation and management of problems as outlined above. At the time of this admission I do not reasonably expected evaluation and management of this problem will require more than a 96 hour hospital stay. DISPOSITION-anticipate discharge to home after the hospital stay. PRIMARY CARE PROVIDER-Ivonne Lyles
[2020-05-04] MEDS ORDERED: Fluconazole 100 MG Tab PO ONE (16:30)
[2020-05-04] MEDS: atorvaSTATin 10 MG Tab PO SCH (20:44)
[2020-05-05] MEDS: NS + KCl 20mEq/L 1,000 ML IV SCH ×2 (01:16→10:51)
[2020-05-05] MEDS: oxyCODONE 5 MG Tab PO PRN ×3 (01:25→20:55)
[2020-05-05] MEDS: metroNIDAZOLE/Normal Saline 500 MG in Premix Bag 1 BAG IV SCH ×3 (03:25→19:59)
[2020-05-05] MEDS: Ondansetron 4 MG Tab.DIS PO PRN (04:21)
[2020-05-05] MEDS: Insulin Lispro 100 Unit/ML 3 ML KwikPen SUBCUT SCH ×4 (08:03→21:10)
[2020-05-05] MEDS: Levothyroxine 88 MCG Tab PO SCH ×2 (09:18→10:25)
[2020-05-05] MEDS: Atenolol 25 MG Tab PO SCH (10:25)
[2020-05-05] MEDS: amLODIPine 5 MG Tab PO SCH (10:25)
[2020-05-05] MEDS: Lisinopril 10 MG Tab PO SCH (10:26)
[2020-05-05] MEDS: Ciprofloxacin in D5W 400 MG in Premix Bag 1 BAG IV SCH ×4 (10:26→23:06)
[2020-05-05] MEDS: Lactobacillus Rhamnosus GG (Probiotic) Cap PO SCH ×3 (10:26→20:55)
[2020-05-05] MEDS: Pantoprazole 40 MG Vial IVPUSH SCH ×2 (10:27→23:15)
--- NOTE | 2020-05-05 14:23 | PCM.PN ---
- General Info Date of Service: 05/05/20 Subjective Update: Mrs. Gallegos has shown further improvement over the last 24 hours, less blood in the stool and less pain. She was seen and evaluated this morning by Dr. Candelaria. Current plan is for outpatient colonoscopy as long as she continues to improve. Functional Status: Reports: Urinating - Review of Systems General: Reports: No Symptoms Pulmonary: Reports: No Symptoms Cardiovascular: Reports: No Symptoms Gastrointestinal: Reports: Abdominal Pain, Diarrhea, Hematochezia. Denies: Difficulty Swallowing, Nausea, Vomiting - Patient Data Vitals - Most Recent: Last Vital Signs Temp 99.4 F 05/05/20 10:20 Pulse 81 05/05/20 10:25 Resp 16 05/05/20 10:20 BP 148/66 H 05/05/20 10:26 Pulse Ox 95 05/05/20 10:20 Weight - Most Recent: 175 lb 11.194 oz I&O - Last 24 Hours: Intake & Output 05/04/20 05/05/20 05/05/20 22:59 06:59 14:59 Intake Total 400 2958 500 Output Total 560 855 4410 Balance -250 2258 -700 Lab Results Last 24 Hours: Laboratory Results - last 24 hr 05/04/20 05/04/20 05/04/20 Range/Units 16:30 17:00 21:00 WBC (4.5-11.0) K/uL RBC (3.30-5.50) M/uL Hgb 9.1 L (12.0-15.0) g/dL Hct (36.0-48.0) % MCV (80-98) fL MCH (27-31) pg MCHC (32-36) % Plt Count (150-400) K/uL Neut % (Auto) (36-66) % Lymph % (Auto) (24-44) % [place] % (Auto) (2-6) % Eos % (Auto) (2-4) % Baso % (Auto) (0-1) % Sodium (140-148) mmol/L Potassium (3.6-5.2) mmol/L Chloride (100-108) mmol/L Carbon Dioxide (21-32) mmol/L Anion Gap (5.0-14.0) mmol/L BUN (7-18) mg/dL Creatinine (0.6-1.0) mg/dL Est Cr Clr Drug Dosing mL/min Estimated GFR (MDRD) (>60) Glucose (74-106) mg/dL POC Glucose 115 H 135 H (74-106) MG/DL Calcium (8.5-10.1) mg/dL 05/05/20 05/05/20 05/05/20 Range/Units 04:24 04:24 07:30 WBC 12.8 H (4.5-11.0) K/uL RBC 3.06 L (3.30-5.50) M/uL Hgb 8.9 L (12.0-15.0) g/dL Hct 28.4 L (36.0-48.0) % MCV 93 (80-98) fL MCH 29 (27-31) pg MCHC 31 L (32-36) % Plt Count 154 (150-400) K/uL Neut % (Auto) 80 H (36-66) % Lymph % (Auto) 10 L (24-44) % [place] % (Auto) 9 H (2-6) % Eos % (Auto) 1 L (2-4) % Baso % (Auto) 0 (0-1) % Sodium 129 L (140-148) mmol/L Potassium 3.4 L (3.6-5.2) mmol/L Chloride 98 L (100-108) mmol/L Carbon Dioxide 21 (21-32) mmol/L Anion Gap 13.4 (5.0-14.0) mmol/L BUN 6 L (7-18) mg/dL Creatinine 0.6 (0.6-1.0) mg/dL Est Cr Clr Drug Dosing 77.26 mL/min Estimated GFR (MDRD) > 60 (>60) Glucose 130 H (74-106) mg/dL POC Glucose 128 H (74-106) MG/DL Calcium 8.2 L (8.5-10.1) mg/dL 05/05/20 Range/Units 11:35 WBC (4.5-11.0) K/uL RBC (3.30-5.50) M/uL Hgb (12.0-15.0) g/dL Hct (36.0-48.0) % MCV (80-98) fL MCH (27-31) pg MCHC (32-36) % Plt Count (150-400) K/uL Neut % (Auto) (36-66) % Lymph % (Auto) (24-44) % [place] % (Auto) (2-6) % Eos % (Auto) (2-4) % Baso % (Auto) (0-1) % Sodium (140-148) mmol/L Potassium (3.6-5.2) mmol/L Chloride (100-108) mmol/L Carbon Dioxide (21-32) mmol/L Anion Gap (5.0-14.0) mmol/L BUN (7-18) mg/dL Creatinine (0.6-1.0) mg/dL Est Cr Clr Drug Dosing mL/min Estimated GFR (MDRD) (>60) Glucose (74-106) mg/dL POC Glucose 143 H (74-106) MG/DL Calcium (8.5-10.1) mg/dL Eladio Results Last 24 Hours: Microbiology 05/02/20 23:02 Stool Culture - Preliminary Stool / Feces NORMAL ENTERIC FAHEEM 2 DAYS Shiga Toxin I - Final NEGATIVE FOR SHIGA TOXIN 1 Shiga Toxin II - Final NEGATIVE FOR SHIGA TOXIN 2 REFERENCE RANGE: NEGATIVE 05/02/20 21:35 Urine Culture - Final Urine, Catheterized NO GROWTH AFTER 2 DAYS 05/02/20 18:00 Aerobic Blood Culture - Preliminary Blood - Venous - Iv Start NO GROWTH AFTER 2 DAYS Anaerobic Blood Culture - Preliminary NO GROWTH AFTER 2 DAYS Med Orders - Current: Current Medications Acetaminophen (Tylenol) 650 mg PO Q4H PRN PRN Reason: Pain (Mild 1-3)/fever Last Admin: 05/04/20 04:00 Dose: 650 mg Documented by: Amlodipine Besylate (Norvasc) 5 mg PO DAILY [facility] Last Admin: 05/05/20 10:25 Dose: 5 mg Documented by: Atenolol (Tenormin) 50 mg PO DAILY [facility] Last Admin: 05/05/20 10:25 Dose: 50 mg Documented by: Atorvastatin Calcium (Lipitor) 10 mg PO BEDTIME [facility] Last Admin: 05/04/20 20:44 Dose: 10 mg Documented by: Promethazine HCl 12.5 mg/ (Sodium Chloride) 50.5 mls @ 200 mls/hr IV Q6H PRN PRN Reason: Nausea/Vomiting Ciprofloxacin/Dextrose 400 mg/ (Premix) 200 mls @ 200 mls/hr IV Q12H [facility] Last Admin: 05/05/20 10:26 Dose: 200 mls/hr Documented by: Metronidazole 500 mg/ Premix 100 mls @ 100 mls/hr IV Q8H [facility] Last Admin: 05/05/20 12:44 Dose: 100 mls/hr Documented by: Influenza Virus Vaccine (Fluzone High-Dose Quad ) 240 mcg IM .ONCE ONE Stop: 05/06/20 09:01 Insulin Human Lispro (Humalog) 0 unit SUBCUT QIDACANDBED [facility]; Protocol Last Admin: 05/05/20 12:43 Dose: Not Given Documented by: Lactobacillus Rhamnosus (Culturelle) 2 cap PO BID [facility] Last Admin: 05/05/20 10:45 Dose: 2 cap Documented by: Levothyroxine Sodium (Synthroid) 88 mcg PO ACBREAKFAST [facility] Last Admin: 05/05/20 10:25 Dose: 88 mcg Documented by: Lisinopril (Prinivil) 10 mg PO DAILY [facility] Last Admin: 05/05/20 10:26 Dose: 10 mg Documented by: Morphine Sulfate (Morphine) 4 mg IVPUSH Q2H PRN PRN Reason: Pain (severe 7-10) Last Admin: 05/03/20 08:50 Dose: 4 mg Documented by: Ondansetron HCl (Zofran Odt) 4 mg PO Q6H PRN PRN Reason: Nausea able to take PO Last Admin: 05/05/20 04:21 Dose: 4 mg Documented by: Oxycodone HCl (Oxycodone) 10 mg PO Q4H PRN PRN Reason: Pain (moderate 4-6) Last Admin: 05/05/20 12:43 Dose: 10 mg Documented by: Pantoprazole Sodium (Protonix Iv) 40 mg IVPUSH Q12H [facility] Last Admin: 05/05/20 10:27 Dose: 40 mg Documented by: Potassium Chloride (Klor-Con M20) 40 meq PO ONETIME ONE Stop: 05/05/20 14:22 Discontinued Medications Acetaminophen (Tylenol) 650 mg PO NOW ONE Stop: 05/02/20 21:21 Last Admin: 05/02/20 21:30 Dose: 650 mg Documented by: Bisacodyl (Dulcolax) 10 mg PO ONETIME ONE Stop: 05/03/20 11:01 Last Admin: 05/03/20 11:22 Dose: 10 mg Documented by: Bisacodyl (Dulcolax) 10 mg PO ONETIME ONE Stop: 05/03/20 20:01 Cephalexin (Keflex) 500 mg PO Q6HR [facility] Last Admin: 05/03/20 09:36 Dose: 500 mg Documented by: Dextrose/Water (Dextrose 50% In Water) 50 ml IV ONETIME ONE Stop: 05/02/20 23:00 Last Admin: 05/03/20 00:44 Dose: Not Given Documented by: Famotidine (Pepcid) 20 mg PO BID [facility] Last Admin: 05/03/20 08:47 Dose: 20 mg Documented by: Fentanyl (Sublimaze) 50 mcg IVPUSH ONETIME ONE Stop: 05/02/20 17:36 Last Admin: 05/02/20 18:11 Dose: 50 mcg Documented by: Fluconazole (Diflucan) 100 mg PO ONETIME ONE Stop: 05/04/20 16:31 Last Admin: 05/04/20 16:34 Dose: 100 mg Documented by: Hydromorphone HCl (Dilaudid) 0.5 mg IVPUSH ONETIME ONE Stop: 05/02/20 19:05 Last Admin: 05/02/20 19:14 Dose: 0.5 mg Documented by: Hydromorphone HCl (Dilaudid) 0.5 mg IVPUSH ONETIME ONE Stop: 05/02/20 20:43 Last Admin: 05/02/20 20:54 Dose: 0.5 mg Documented by: Sodium Chloride (Normal Saline) 1,000 mls @ 500 mls/hr IV ASDIRECTED [facility] Last Admin: 05/02/20 18:06 Dose: 500 mls/hr Documented by: Sodium Chloride (Normal Saline) 80 mls @ 3 mls/sec IV ASDIRECTED [facility] Last Admin: 05/02/20 19:32 Dose: 3 mls/sec Documented by: Potassium Chloride/Sodium Chloride (Normal Saline With 20 Meq Kcl) 1,000 mls @ 100 mls/hr IV ASDIRECTED [facility] Last Admin: 05/05/20 10:51 Dose: 100 mls/hr Documented by: Sodium Chloride (Normal Saline) 75 mls @ 3 mls/sec IV ASDIRECTED [facility] Last Admin: 05/04/20 12:02 Dose: 3 mls/sec Documented by: Iopamidol (Isovue-300 (61%)) 100 ml IV . DIRECTED [facility] Last Admin: 05/02/20 19:32 Dose: 100 ml Documented by: Iopamidol (Isovue-300 (61%)) 100 ml IV . DIRECTED [facility] Last Admin: 05/04/20 12:02 Dose: 100 ml Documented by: Metoclopramide HCl (Reglan) 5 mg IV ONETIME ONE Stop: 05/02/20 17:36 Last Admin: 05/02/20 18:08 Dose: 5 mg Documented by: Polyethylene Glycol (Miralax) 238 gm PO ONETIME ONE Stop: 05/03/20 17:01 Sodium Chloride (Saline Flush) 10 ml FLUSH ASDIRECTED PRN PRN Reason: Keep Vein Open Last Admin: 05/02/20 19:32 Dose: 10 ml Documented by: Sodium Chloride (Saline Flush) 10 ml FLUSH ONETIME ONE Stop: 05/04/20 11:53 Last Admin: 05/04/20 12:02 Dose: 10 ml Documented by: Vancomycin HCl (Vancocin 250 Mg/5 Ml Soln) 500 mg PO QID [facility] Vancomycin HCl (Vancocin 250 Mg/5 Ml Soln) 125 mg PO QID [facility] Last Admin: 05/03/20 05:01 Dose: 125 mg Documented by: Vancomycin HCl (Vancomycin) Confirm Administered Dose 1 gm .ROUTE .STK-MED ONE Stop: 05/03/20 00:08 Last Admin: 05/03/20 07:29 Dose: Not Given Documented by: Vancomycin HCl (Vancocin 125 Mg Capsule) 125 mg PO QID [facility] Last Admin: 05/03/20 09:36 Dose: 125 mg Documented by: - Exam Quality Assessment: DVT Prophylaxis General: Alert, Oriented, Cooperative, Mild Distress Lungs: Clear to Auscultation, Normal Respiratory Effort Cardiovascular: Regular Rate, Regular Rhythm, No Murmurs GI/Abdominal Exam: Soft, No Organomegaly, Tender. No: Distended, Guarding, Rigid, Rebound Extremities: Non-Tender, No Pedal Edema Sepsis Event Note - Evaluation Sepsis Screening Result: No Definite Risk - Focused Exam Vital Signs: Vital Signs Temp Pulse Pulse Resp BP BP Pulse Ox 05/05/20 10:26 148/66 H 05/05/20 10:25 81 148/66 H 05/05/20 10:20 99.4 F 81 16 148/66 H 95 05/05/20 07:00 98.9 F 72 18 127/53 L 94 L 05/05/20 03:00 98.9 F 69 18 137/34 L 97 - Problem List Review Problem List Initiated/Reviewed/Updated: Yes - My Orders Last 24 Hours: My Active Orders 05/04/20 15:55 Consult to Physician [CONS] Routine 05/04/20 15:56 Notify Provider Consults [RC] ASDIRECTED 05/05/20 Lunch Full Liquid Diet [DIET] 05/05/20 14:06 Influenza Vaccine Charge [RC] .DISCHARGE 05/05/20 14:21 Potassium Chloride [Klor-Con M20] 40 meq PO ONETIME ONE Convert IV to Saline Lock [OM.PC] Routine 05/05/20 16:30 GLUCOSE POC LAB TO COLLECT JPM [POC] QIDACANDBED 05/05/20 21:00 GLUCOSE POC LAB TO COLLECT JPM [POC] QIDACANDBED 05/06/20 05:00 BASIC METABOLIC PANEL,BMP [CHEM] Timed CBC WITH AUTO DIFF [HEME] Timed 05/06/20 07:30 GLUCOSE POC LAB TO COLLECT JPM [POC] QIDACANDBED 05/06/20 09:00 FLU Vacc [id number](65YR UP)/PF [Fluzone High-Dose Quad ] 240 mcg IM .ONCE ONE 05/06/20 11:30 GLUCOSE POC LAB TO COLLECT JPM [POC] QIDACANDBED 05/06/20 16:30 GLUCOSE POC LAB TO COLLECT JPM [POC] QIDACANDBED 05/06/20 21:00 GLUCOSE POC LAB TO COLLECT JPM [POC] QIDACANDBED 05/07/20 07:30 GLUCOSE POC LAB TO COLLECT JPM [POC] QIDACANDBED 05/07/20 11:30 GLUCOSE POC LAB TO COLLECT JPM [POC] QIDACANDBED 05/07/20 16:30 GLUCOSE POC LAB TO COLLECT JPM [POC] QIDACANDBED 05/07/20 21:00 GLUCOSE POC LAB TO COLLECT JPM [POC] QIDACANDBED 05/08/20 07:30 GLUCOSE POC LAB TO COLLECT JPM [POC] QIDACANDBED 05/08/20 11:30 GLUCOSE POC LAB TO COLLECT JPM [POC] QIDACANDBED 05/08/20 16:30 GLUCOSE POC LAB TO COLLECT JPM [POC] QIDACANDBED 05/08/20 21:00 GLUCOSE POC LAB TO COLLECT JPM [POC] QIDACANDBED 05/09/20 07:30 GLUCOSE POC LAB TO COLLECT JPM [POC] QIDACANDBED 05/09/20 11:30 GLUCOSE POC LAB TO COLLECT JPM [POC] QIDACANDBED 05/09/20 16:30 GLUCOSE POC LAB TO COLLECT JPM [POC] QIDACANDBED 05/09/20 21:00 GLUCOSE POC LAB TO COLLECT JPM [POC] QIDACANDBED 05/10/20 07:30 GLUCOSE POC LAB TO COLLECT JPM [POC] QIDACANDBED 05/10/20 11:30 GLUCOSE POC LAB TO COLLECT JPM [POC] QIDACANDBED 05/10/20 16:30 GLUCOSE POC LAB TO COLLECT JPM [POC] QIDACANDBED - Plan Plan:: ASSESSMENT AND PLAN COLITIS WITH HEMATOCHEZIA-symptoms and onset would be very consistent with ischemic colitis. CT scan does not necessarily fit with an ischemic pattern. Possible underlying infectious process. Further improvement over the last 24 hours with less pain and hematochezia -And for outpatient colonoscopy with Dr. Candelaria -Full liquid diet -Saline lock IV -Pain and nausea medication as needed -Serial hemoglobin levels -IV ciprofloxacin and metronidazole URINARY TRACT INFECTION-recent positive urinalysis with positive culture -Antibiotic therapy with ciprofloxacin should provide adequate coverage for recent infection TYPE 2 DIABETES MELLITUS -4 times daily glucometers -Low-dose sliding scale Humalog MAINTENANCE ISSUES -DVT prophylaxis; SCUDS, hold on anticoagulation because of active bleeding -GI prophylaxis; Protonix 40 mg IV twice daily -Gleason catheter; not indicated -Nutrition; n.p.o. -Nicotine dependence; not required CODE STATUS-FULL CODE ADMISSION STATUS-patient will be admitted to inpatient status, expect at least a 2 night hospital stay for evaluation and management of problems as outlined above. At the time of this admission I do not reasonably expected evaluation and management of this problem will require more than a 96 hour hospital stay. DISPOSITION-anticipate discharge to home after the hospital stay. PRIMARY CARE PROVIDER-Ivonne Lyles
[2020-05-05] MEDS ORDERED: Potassium Chloride 20 MEQ Tab.ER PO ONE (15:00)
[2020-05-05] MEDS: atorvaSTATin 10 MG Tab PO SCH (20:55)
[2020-05-06] MEDS: oxyCODONE 5 MG Tab PO PRN ×3 (03:48→22:14)
[2020-05-06] MEDS: metroNIDAZOLE/Normal Saline 500 MG in Premix Bag 1 BAG IV SCH (03:49)
[2020-05-06] MEDS: Insulin Lispro 100 Unit/ML 3 ML KwikPen SUBCUT SCH ×4 (07:30→21:54)
[2020-05-06] MEDS: Levothyroxine 88 MCG Tab PO SCH (07:34)
[2020-05-06] MEDS: Acetaminophen 325 MG Tab PO PRN ×3 (07:34→22:14)
[2020-05-06] MEDS: Lactobacillus Rhamnosus GG (Probiotic) Cap PO SCH ×2 (08:39→21:56)
[2020-05-06] MEDS: Atenolol 25 MG Tab PO SCH (08:40)
[2020-05-06] MEDS: amLODIPine 5 MG Tab PO SCH (08:40)
[2020-05-06] MEDS: Lisinopril 10 MG Tab PO SCH (08:40)
[2020-05-06] MEDS ORDERED: FLU Vacc QV2020-21(65YR UP)/PF 240 MCG/0.7 ML Syringe IM ONE (09:00)
[2020-05-06] MEDS ORDERED: Potassium Chloride 20 MEQ Tab.ER PO ONE (09:00)
[2020-05-06] MEDS: Pantoprazole 40 MG Vial IVPUSH SCH (10:08)
--- NOTE | 2020-05-06 11:00 | PCM.PN ---
- General Info Date of Service: 05/06/20 Subjective Update: Ms. Gallegos has been stable over the last 24 hours, currently tolerating a full liquid diet. Pain has almost totally resolved she continues to experience some loose stools and occasional blood in the stool. Vital signs have remained stable and she has been afebrile. Functional Status: Reports: Tolerating Diet, Ambulating, Urinating - Review of Systems General: Reports: Weakness. Denies: Fever, Chills Pulmonary: Reports: No Symptoms Cardiovascular: Reports: No Symptoms Gastrointestinal: Reports: Abdominal Pain, Diarrhea, Hematochezia. Denies: Difficulty Swallowing, Melena, Nausea, Vomiting Genitourinary: Reports: No Symptoms - Patient Data Vitals - Most Recent: Last Vital Signs Temp 98.8 F 05/06/20 07:29 Pulse 77 05/06/20 08:40 Resp 18 05/06/20 07:29 BP 154/76 H 05/06/20 08:40 Pulse Ox 97 05/06/20 07:29 Weight - Most Recent: 175 lb 11.194 oz I&O - Last 24 Hours: Intake & Output 05/05/20 05/06/20 05/06/20 22:59 06:59 14:59 Intake Total 911 600 300 Output Total 1000 600 550 Balance -89 0 -250 Lab Results Last 24 Hours: Laboratory Results - last 24 hr 05/05/20 05/05/20 05/05/20 Range/Units 11:35 16:30 21:00 WBC (4.5-11.0) K/uL RBC (3.30-5.50) M/uL Hgb (12.0-15.0) g/dL Hct (36.0-48.0) % MCV (80-98) fL MCH (27-31) pg MCHC (32-36) % Plt Count (150-400) K/uL Neut % (Auto) (36-66) % Lymph % (Auto) (24-44) % Waldo % (Auto) (2-6) % Eos % (Auto) (2-4) % Baso % (Auto) (0-1) % Sodium (140-148) mmol/L Potassium (3.6-5.2) mmol/L Chloride (100-108) mmol/L Carbon Dioxide (21-32) mmol/L Anion Gap (5.0-14.0) mmol/L BUN (7-18) mg/dL Creatinine (0.6-1.0) mg/dL Est Cr Clr Drug Dosing mL/min Estimated GFR (MDRD) (>60) Glucose (74-106) mg/dL POC Glucose 143 H 122 H 123 H (74-106) MG/DL Calcium (8.5-10.1) mg/dL 05/06/20 05/06/20 05/06/20 Range/Units 04:10 04:10 07:30 WBC 10.8 (4.5-11.0) K/uL RBC 3.02 L (3.30-5.50) M/uL Hgb 8.9 L (12.0-15.0) g/dL Hct 27.6 L (36.0-48.0) % MCV 91 (80-98) fL MCH 30 (27-31) pg MCHC 32 (32-36) % Plt Count 188 (150-400) K/uL Neut % (Auto) 75 H (36-66) % Lymph % (Auto) 11 L (24-44) % Waldo % (Auto) 11 H (2-6) % Eos % (Auto) 3 (2-4) % Baso % (Auto) 0 (0-1) % Sodium 130 L (140-148) mmol/L Potassium 3.5 L (3.6-5.2) mmol/L Chloride 99 L (100-108) mmol/L Carbon Dioxide 23 (21-32) mmol/L Anion Gap 11.5 (5.0-14.0) mmol/L BUN 4 L (7-18) mg/dL Creatinine 0.6 (0.6-1.0) mg/dL Est Cr Clr Drug Dosing 77.26 mL/min Estimated GFR (MDRD) > 60 (>60) Glucose 132 H (74-106) mg/dL POC Glucose 129 H (74-106) MG/DL Calcium 8.1 L (8.5-10.1) mg/dL Eladio Results Last 24 Hours: Microbiology 05/02/20 23:02 Stool Culture - Final Stool / Feces NORMAL ENTERIC FAHEEM. NO SALMONELLA, SHIGELLA, CAMPYLOBACTER OR E.COLI O157 ISOLATED. Shiga Toxin I - Final NEGATIVE FOR SHIGA TOXIN 1 Shiga Toxin II - Final NEGATIVE FOR SHIGA TOXIN 2 REFERENCE RANGE: NEGATIVE 05/02/20 18:00 Aerobic Blood Culture - Preliminary Blood - Venous - Iv Start NO GROWTH AFTER 3 DAYS Anaerobic Blood Culture - Preliminary NO GROWTH AFTER 3 DAYS 05/02/20 21:35 Urine Culture - Final Urine, Catheterized NO GROWTH AFTER 2 DAYS Med Orders - Current: Current Medications Acetaminophen (Tylenol) 650 mg PO Q4H PRN PRN Reason: Pain (Mild 1-3)/fever Last Admin: 05/06/20 07:34 Dose: 650 mg Documented by: Amlodipine Besylate (Norvasc) 5 mg PO DAILY [facility] Last Admin: 05/06/20 08:40 Dose: 5 mg Documented by: Atenolol (Tenormin) 50 mg PO DAILY [facility] Last Admin: 05/06/20 08:40 Dose: 50 mg Documented by: Atorvastatin Calcium (Lipitor) 10 mg PO BEDTIME [facility] Last Admin: 05/05/20 20:55 Dose: 10 mg Documented by: Ciprofloxacin (Ciprofloxacin Hcl) 500 mg PO BID [facility] Promethazine HCl 12.5 mg/ (Sodium Chloride) 50.5 mls @ 200 mls/hr IV Q6H PRN PRN Reason: Nausea/Vomiting Insulin Human Lispro (Humalog) 0 unit SUBCUT QIDACANDBED [facility]; Protocol Last Admin: 05/06/20 07:30 Dose: Not Given Documented by: Lactobacillus Rhamnosus (Culturelle) 2 cap PO BID [facility] Last Admin: 05/06/20 08:39 Dose: 2 cap Documented by: Levothyroxine Sodium (Synthroid) 88 mcg PO ACBREAKFAST [facility] Last Admin: 05/06/20 07:34 Dose: 88 mcg Documented by: Lisinopril (Prinivil) 10 mg PO DAILY [facility] Last Admin: 05/06/20 08:40 Dose: 10 mg Documented by: Metronidazole (Metronidazole) 250 mg PO Q6H [facility] Morphine Sulfate (Morphine) 4 mg IVPUSH Q2H PRN PRN Reason: Pain (severe 7-10) Last Admin: 05/03/20 08:50 Dose: 4 mg Documented by: Ondansetron HCl (Zofran Odt) 4 mg PO Q6H PRN PRN Reason: Nausea able to take PO Last Admin: 05/05/20 04:21 Dose: 4 mg Documented by: Oxycodone HCl (Oxycodone) 10 mg PO Q4H PRN PRN Reason: Pain (moderate 4-6) Last Admin: 05/06/20 03:48 Dose: 10 mg Documented by: Pantoprazole Sodium (Protonix Iv) 40 mg IVPUSH Q12H [facility] Last Admin: 05/06/20 10:08 Dose: 40 mg Documented by: Discontinued Medications Acetaminophen (Tylenol) 650 mg PO NOW ONE Stop: 05/02/20 21:21 Last Admin: 05/02/20 21:30 Dose: 650 mg Documented by: Bisacodyl (Dulcolax) 10 mg PO ONETIME ONE Stop: 05/03/20 11:01 Last Admin: 05/03/20 11:22 Dose: 10 mg Documented by: Bisacodyl (Dulcolax) 10 mg PO ONETIME ONE Stop: 05/03/20 20:01 Cephalexin (Keflex) 500 mg PO Q6HR [facility] Last Admin: 05/03/20 09:36 Dose: 500 mg Documented by: Dextrose/Water (Dextrose 50% In Water) 50 ml IV ONETIME ONE Stop: 05/02/20 23:00 Last Admin: 05/03/20 00:44 Dose: Not Given Documented by: Famotidine (Pepcid) 20 mg PO BID [facility] Last Admin: 05/03/20 08:47 Dose: 20 mg Documented by: Fentanyl (Sublimaze) 50 mcg IVPUSH ONETIME ONE Stop: 05/02/20 17:36 Last Admin: 05/02/20 18:11 Dose: 50 mcg Documented by: Fluconazole (Diflucan) 100 mg PO ONETIME ONE Stop: 05/04/20 16:31 Last Admin: 05/04/20 16:34 Dose: 100 mg Documented by: Hydromorphone HCl (Dilaudid) 0.5 mg IVPUSH ONETIME ONE Stop: 05/02/20 19:05 Last Admin: 05/02/20 19:14 Dose: 0.5 mg Documented by: Hydromorphone HCl (Dilaudid) 0.5 mg IVPUSH ONETIME ONE Stop: 05/02/20 20:43 Last Admin: 05/02/20 20:54 Dose: 0.5 mg Documented by: Sodium Chloride (Normal Saline) 1,000 mls @ 500 mls/hr IV ASDIRECTED [facility] Last Admin: 05/02/20 18:06 Dose: 500 mls/hr Documented by: Sodium Chloride (Normal Saline) 80 mls @ 3 mls/sec IV ASDIRECTED [facility] Last Admin: 05/02/20 19:32 Dose: 3 mls/sec Documented by: Potassium Chloride/Sodium Chloride (Normal Saline With 20 Meq Kcl) 1,000 mls @ 100 mls/hr IV ASDIRECTED [facility] Last Admin: 05/05/20 10:51 Dose: 100 mls/hr Documented by: Ciprofloxacin/Dextrose 400 mg/ (Premix) 200 mls @ 200 mls/hr IV Q12H [facility] Last Admin: 05/05/20 23:06 Dose: 200 mls/hr Documented by: Metronidazole 500 mg/ Premix 100 mls @ 100 mls/hr IV Q8H [facility] Last Admin: 05/06/20 03:49 Dose: 100 mls/hr Documented by: Sodium Chloride (Normal Saline) 75 mls @ 3 mls/sec IV ASDIRECTED [facility] Last Admin: 05/04/20 12:02 Dose: 3 mls/sec Documented by: Influenza Virus Vaccine (Fluzone High-Dose Quad ) 240 mcg IM .ONCE ONE Stop: 05/06/20 09:01 Last Admin: 05/06/20 08:34 Dose: Not Given Documented by: Iopamidol (Isovue-300 (61%)) 100 ml IV . DIRECTED [facility] Last Admin: 05/02/20 19:32 Dose: 100 ml Documented by: Iopamidol (Isovue-300 (61%)) 100 ml IV . DIRECTED [facility] Last Admin: 05/04/20 12:02 Dose: 100 ml Documented by: Metoclopramide HCl (Reglan) 5 mg IV ONETIME ONE Stop: 05/02/20 17:36 Last Admin: 05/02/20 18:08 Dose: 5 mg Documented by: Polyethylene Glycol (Miralax) 238 gm PO ONETIME ONE Stop: 05/03/20 17:01 Potassium Chloride (Klor-Con M20) 40 meq PO ONETIME ONE Stop: 05/05/20 15:01 Last Admin: 05/05/20 15:37 Dose: 40 meq Documented by: Potassium Chloride (Klor-Con M20) 40 meq PO ONETIME ONE Stop: 05/06/20 09:01 Last Admin: 05/06/20 10:08 Dose: 40 meq Documented by: Sodium Chloride (Saline Flush) 10 ml FLUSH ASDIRECTED PRN PRN Reason: Keep Vein Open Last Admin: 05/02/20 19:32 Dose: 10 ml Documented by: Sodium Chloride (Saline Flush) 10 ml FLUSH ONETIME ONE Stop: 05/04/20 11:53 Last Admin: 05/04/20 12:02 Dose: 10 ml Documented by: Vancomycin HCl (Vancocin 250 Mg/5 Ml Soln) 500 mg PO QID [facility] Vancomycin HCl (Vancocin 250 Mg/5 Ml Soln) 125 mg PO QID [facility] Last Admin: 05/03/20 05:01 Dose: 125 mg Documented by: Vancomycin HCl (Vancomycin) Confirm Administered Dose 1 gm .ROUTE .STK-MED ONE Stop: 05/03/20 00:08 Last Admin: 05/03/20 07:29 Dose: Not Given Documented by: Vancomycin HCl (Vancocin 125 Mg Capsule) 125 mg PO QID [facility] Last Admin: 05/03/20 09:36 Dose: 125 mg Documented by: - Exam Quality Assessment: DVT Prophylaxis General: Alert, Oriented, Cooperative, No Acute Distress Lungs: Clear to Auscultation, Normal Respiratory Effort Cardiovascular: Regular Rate, Regular Rhythm, No Murmurs GI/Abdominal Exam: Soft, Non-Tender, No Organomegaly, No Distention Extremities: Non-Tender, No Pedal Edema Sepsis Event Note - Evaluation Sepsis Screening Result: No Definite Risk - Focused Exam Vital Signs: Vital Signs Temp Pulse Pulse Resp BP BP Pulse Ox 05/06/20 08:40 77 154/76 H 05/06/20 07:29 98.8 F 77 18 154/76 H 97 05/06/20 03:50 98.7 F 67 16 137/73 97 05/05/20 23:21 99.2 F 77 16 149/59 H 100 - Problem List Review Problem List Initiated/Reviewed/Updated: Yes - My Orders Last 24 Hours: My Active Orders 05/05/20 14:06 Influenza Vaccine Charge [RC] .DISCHARGE 05/05/20 14:21 Convert IV to Saline Lock [OM.PC] Routine 05/06/20 Breakfast GI Soft Low Fiber [Soft Diet] [DIET] 05/06/20 10:59 TSH ULTRASENSITIVE [CHEM] Urgent 05/06/20 11:00 metroNIDAZOLE 250 mg PO Q6H 05/06/20 11:30 GLUCOSE POC LAB TO COLLECT JPM [POC] QIDACANDBED 05/06/20 16:30 GLUCOSE POC LAB TO COLLECT JPM [POC] QIDACANDBED 05/06/20 21:00 GLUCOSE POC LAB TO COLLECT JPM [POC] QIDACANDBED Ciprofloxacin [Ciprofloxacin HCl] 500 mg PO BID 05/07/20 07:30 GLUCOSE POC LAB TO COLLECT JPM [POC] QIDACANDBED 05/07/20 11:30 GLUCOSE POC LAB TO COLLECT JPM [POC] QIDACANDBED 05/07/20 16:30 GLUCOSE POC LAB TO COLLECT JPM [POC] QIDACANDBED 05/07/20 21:00 GLUCOSE POC LAB TO COLLECT JPM [POC] QIDACANDBED 05/08/20 07:30 GLUCOSE POC LAB TO COLLECT JPM [POC] QIDACANDBED 05/08/20 11:30 GLUCOSE POC LAB TO COLLECT JPM [POC] QIDACANDBED 05/08/20 16:30 GLUCOSE POC LAB TO COLLECT JPM [POC] QIDACANDBED 05/08/20 21:00 GLUCOSE POC LAB TO COLLECT JPM [POC] QIDACANDBED 05/09/20 07:30 GLUCOSE POC LAB TO COLLECT JPM [POC] QIDACANDBED 05/09/20 11:30 GLUCOSE POC LAB TO COLLECT JPM [POC] QIDACANDBED 05/09/20 16:30 GLUCOSE POC LAB TO COLLECT JPM [POC] QIDACANDBED 05/09/20 21:00 GLUCOSE POC LAB TO COLLECT JPM [POC] QIDACANDBED 05/10/20 07:30 GLUCOSE POC LAB TO COLLECT JPM [POC] QIDACANDBED 05/10/20 11:30 GLUCOSE POC LAB TO COLLECT JPM [POC] QIDACANDBED 05/10/20 16:30 GLUCOSE POC LAB TO COLLECT JPM [POC] QIDACANDBED - Plan Plan:: ASSESSMENT AND PLAN COLITIS WITH HEMATOCHEZIA-symptoms and onset would be very consistent with ischemic colitis. CT scan does not necessarily fit with an ischemic pattern. Possible underlying infectious process. Further improvement over the last 24 hours with less pain and hematochezia -Plan outpatient colonoscopy with Dr. Bari -Soft diet -Saline lock IV -Pain and nausea medication as needed -IV ciprofloxacin and metronidazole URINARY TRACT INFECTION-recent positive urinalysis with positive culture -Antibiotic therapy with ciprofloxacin should provide adequate coverage for recent infection TYPE 2 DIABETES MELLITUS -4 times daily glucometers -Low-dose sliding scale Humalog MAINTENANCE ISSUES -DVT prophylaxis; SCUDS, hold on anticoagulation because of active bleeding -GI prophylaxis; Protonix 40 mg IV twice daily -Gleason catheter; not indicated -Nutrition; n.p.o. -Nicotine dependence; not required CODE STATUS-FULL CODE ADMISSION STATUS-patient will be admitted to inpatient status, expect at least a 2 night hospital stay for evaluation and management of problems as outlined above. At the time of this admission I do not reasonably expected evaluation and management of this problem will require more than a 96 hour hospital stay. DISPOSITION-anticipate discharge to home after the hospital stay. PRIMARY CARE PROVIDER-Ivonne Lyles
[2020-05-06] MEDS: Ciprofloxacin 500 MG Tab PO SCH ×2 (12:12→21:56)
[2020-05-06] MEDS: metroNIDAZOLE 250 MG Tab PO SCH ×3 (12:15→22:03)
[2020-05-06] MEDS: Pantoprazole 40 MG Tab.CR PO SCH (16:02)
[2020-05-06] MEDS: atorvaSTATin 10 MG Tab PO SCH (22:00)
[2020-05-07] MEDS: oxyCODONE 5 MG Tab PO PRN (04:29)
[2020-05-07] MEDS: metroNIDAZOLE 250 MG Tab PO SCH ×2 (04:29→12:05)
[2020-05-07] MEDS: Insulin Lispro 100 Unit/ML 3 ML KwikPen SUBCUT SCH ×2 (07:56→12:06)
[2020-05-07] MEDS: Levothyroxine 88 MCG Tab PO SCH (07:59)
[2020-05-07] MEDS: Pantoprazole 40 MG Tab.CR PO SCH (07:59)
[2020-05-07] MEDS: Lactobacillus Rhamnosus GG (Probiotic) Cap PO SCH (08:01)
[2020-05-07] MEDS: Ciprofloxacin 500 MG Tab PO SCH (08:02)
[2020-05-07] MEDS: Atenolol 25 MG Tab PO SCH (09:49)
[2020-05-07] MEDS: Lisinopril 10 MG Tab PO SCH (09:49)
[2020-05-07] MEDS: amLODIPine 5 MG Tab PO SCH (09:49)
--- NOTE | 2020-05-07 11:38 | PCM.DCSUM1 ---
Discharge Summary - Hospital Course HPI Initial Comments: Ms. Gallegos is a 70-year-old woman who was admitted through the emergency department with abdominal pain and bloody diarrhea secondary to colitis. - Discharge Data Discharge Date: 05/07/20 Discharge Disposition: Home, Self-Care 01 Condition: Fair - Referral to Home Health Primary Care Physician: Chuy Dunham MD - Discharge Diagnosis/Problem(s) (1) Colitis SNOMED Code(s): 45601387 ICD Code: K52.9 - NONINFECTIVE GASTROENTERITIS AND COLITIS, UNSPECIFIED Status: Acute Current Visit: Yes Onset Date: Unknown Problem Details: Will treat as a presumptive positive c. diff colitis as patient has several risk factors for C. diff colitis and is unable to have a BM (2) GERD (gastroesophageal reflux disease) SNOMED Code(s): 141445665 ICD Code: K21.9 - GASTRO-ESOPHAGEAL REFLUX DISEASE WITHOUT ESOPHAGITIS Status: Acute Current Visit: Yes Problem Details: Will have patient use pepcid in hospital for gerd as PPIs increase risk of C. diff Qualifiers: Esophagitis presence: esophagitis presence not specified Qualified Code(s): K21.9 - Gastro-esophageal reflux disease without esophagitis (3) Diabetes mellitus SNOMED Code(s): 07917426 ICD Code: E11.9 - TYPE 2 DIABETES MELLITUS WITHOUT COMPLICATIONS Status: Acute Current Visit: Yes Onset Date: Unknown Problem Details: Patient states she was recently told she has type 2 diabetes but has not been started on any medications or treatments. Will order BID BG checks and will have SSI available if needed Qualifiers: Diabetes mellitus type: type 2 Diabetes mellitus residential insulin use: without residential use Diabetes mellitus complication status: without complication Qualified Code(s): E11.9 - Type 2 diabetes mellitus without complications (4) Bloody diarrhea SNOMED Code(s): 33609368 ICD Code: R19.7 - DIARRHEA, UNSPECIFIED Status: Acute Current Visit: Yes (5) Acute blood loss anemia SNOMED Code(s): 722312600 ICD Code: D62 - ACUTE POSTHEMORRHAGIC ANEMIA Status: Acute Current Visit: Yes - Patient Summary/Data Consults: Consultations 05/04/20 15:55 Consult to Physician [CONS] Routine Consulting Provider: Ronald Candelaria Call Completed to Consulting Physician: Yes Reason for Consult: Colitis, hematochezia Hospital Course: Ms. Gallegos is a 70-year-old woman who was admitted by Dr. Alicia with abdominal pain and hematochezia. She did undergo EGD on the morning of admission at [facility], other than a duodenal diverticuli no other significant abnormalities were identified. On the way home she began to experience left lower quadrant abdominal pain this and this was associated with hematochezia after she arrived home she had several more bloody bowel movements with ongoing pain at home and presented to the emergency department for further evaluation. Hemoglobin was noted to be fairly stable, CT scan showed evidence of nonspecific colitis essentially involving the entire colon but worse in the transverse colon. She has never had similar symptoms or findings in the past. She does take chronic antibiotic therapy for recurrent urinary tract infections. Stool for C. difficile has been obtained and is negative, other studies are pending. Report from the EGD was obtained and showed no obvious complications or significant hypotension occurring during the case. She continues to experience abdominal pain although it is improved from admission and she has had recurrent bloody stools since admission. On admission she was given IV fluids for hydration as well as medication as needed for pain and nausea. Serial hemoglob in levels were obtained and hemoglobin did drop to 8.8 after a few days, but then stabilized in this range. She was started on antibiotic therapy with ciprofloxacin and Flagyl. Diarrhea as well as abdominal pain slowly improved during hospitalization but had not totally resolved by the time of discharge. A second CT scan of the abdomen was obtained after 2 days of hospitalization and continued to show evidence of colitis but no new findings or any evidence of acute abdomen. She was seen and evaluated first by Dr. Caldera from the surgery department and then Dr. Candelaria. They felt that ischemic colitis was possible but did not necessarily fit the pattern noted on CT scan. Decision was made to complete a course of antibiotic therapy and then proceed with outpatient colonoscopy. By the time of discharge she had been advanced to a soft low residue diet which she was tolerating fairly well. She will remain on antibiotic therapy for an additional 5 days after discharge and will also take and continue probiotic therapy. She did have symptoms of dysuria during hospitalization, follow-up urinalysis showed no evidence of active infection. Follow-up appointment will be scheduled with her primary care provider within 1 week and an outpatient colonoscopy will be scheduled with Dr. Candelaria in the near future. Activity will be as tolerated and she will remain on a soft low residue diet. - Patient Instructions Diet: GI Soft/Low Residue/Low Fiber Activity: As Tolerated Other/Special Instructions: Please schedule outpatient colonoscopy with Dr. Candelaria. Please schedule follow-up appointment with primary care provider within 1 week. - Discharge Plan *PRESCRIPTION DRUG MONITORING PROGRAM REVIEWED*: Not Applicable *COPY OF PRESCRIPTION DRUG MONITORING REPORT IN PATIENT PEDRO: Not Applicable Prescriptions/Med Rec: Ciprofloxacin [Ciprofloxacin HCl] 500 mg PO BID #10 tablet Lactobacillus Rhamnosus GG [Culturelle] 1 cap PO BID #60 cap metroNIDAZOLE 250 mg PO Q6H #20 tablet Acetaminophen/HYDROcodone [Britton 325-5 MG] 1 - 2 tab PO Q6H PRN 5 Days #20 tab PRN Reason: Pain (Severe 7-10) Home Medications: Home Meds Acetaminophen/HYDROcodone [Britton 325-5 MG] 1 - 2 tab PO Q6H PRN 5 Days #20 tab 05/02/20 [Rx] Aspirin [Low Dose Aspirin EC] 81 mg PO DAILY 05/02/20 [History] Levothyroxine [Synthroid] 88 mcg PO ACBREAKFAST 05/02/20 [History] amLODIPine [Norvasc] 5 mg PO DAILY 05/02/20 [History] atenoloL [Atenolol] 50 mg PO DAILY 05/02/20 [History] atorvaSTATin [Lipitor] 10 mg PO BEDTIME 05/02/20 [History] lisinopriL [Prinivil] 20 mg PO BID 05/02/20 [History] Ciprofloxacin [Ciprofloxacin HCl] 500 mg PO BID #10 tablet 05/07/20 [Rx] Lactobacillus Rhamnosus GG [Culturelle] 1 cap PO BID #60 cap 05/07/20 [Rx] metroNIDAZOLE 250 mg PO Q6H #20 tablet 05/07/20 [Rx] Patient Handouts: Rectal Bleeding, Colitis Referrals: Ivonne Dunham MD [Primary Care Provider] - 05/11/20 11:30 am (Please arrive 15 minutes early to register for your appointment.) - Discharge Summary/Plan Comment DC Time >30 min.: No - Patient Data Vitals - Most Recent: Last Vital Signs Temp 98.1 F 05/07/20 09:42 Pulse 69 05/07/20 09:49 Resp 16 05/07/20 09:42 BP 148/65 H 05/07/20 09:49 Pulse Ox 98 05/07/20 09:42 Weight - Most Recent: 175 lb 11.194 oz I&O - Last 24 hours: Intake & Output 05/06/20 05/07/20 05/07/20 22:59 06:59 14:59 Intake Total 540 550 240 Output Total 200 1200 400 Balance 340 -650 -160 Lab Results - Last 24 hrs: Laboratory Results - last 24 hr 05/06/20 05/06/20 05/06/20 Range/Units 10:59 11:26 16:30 POC Glucose 141 H 116 H (74-106) MG/DL Urine Color Yellow (YELLOW) Urine Appearance Clear (CLEAR) Urine pH 7.0 (5.0-8.0) Ur Specific [place] 1.015 (1.008-1.030) Urine Protein Negative (NEGATIVE) mg/dL Urine Glucose (UA) Negative (NEGATIVE) mg/dL Urine Ketones Trace H (NEGATIVE) mg/dL Urine Occult Blood Negative (NEGATIVE) Urine Nitrite Negative (NEGATIVE) Urine Bilirubin Negative (NEGATIVE) Urine Urobilinogen 0.2 (0.2-1.0) EU/dL Ur Leukocyte Esterase Trace H (NEGATIVE) Urine RBC Not seen (0-5) Urine WBC 5-10 H (0-5) Ur Epithelial Cells Few Amorphous Sediment Not seen Urine Bacteria Few Urine Mucus Moderate 05/06/20 05/07/20 Range/Units 20:56 07:17 POC Glucose 142 H 148 H (74-106) MG/DL Urine Color (YELLOW) Urine Appearance (CLEAR) Urine pH (5.0-8.0) Ur Specific [place] (1.008-1.030) Urine Protein (NEGATIVE) mg/dL Urine Glucose (UA) (NEGATIVE) mg/dL Urine Ketones (NEGATIVE) mg/dL Urine Occult Blood (NEGATIVE) Urine Nitrite (NEGATIVE) Urine Bilirubin (NEGATIVE) Urine Urobilinogen (0.2-1.0) EU/dL Ur Leukocyte Esterase (NEGATIVE) Urine RBC (0-5) Urine WBC (0-5) Ur Epithelial Cells Amorphous Sediment Urine Bacteria Urine Mucus [place] Results - Last 24 hrs: Microbiology 05/02/20 18:00 Aerobic Blood Culture - Preliminary Blood - Venous - Iv Start NO GROWTH AFTER 4 DAYS Anaerobic Blood Culture - Preliminary NO GROWTH AFTER 4 DAYS Med Orders - Current: Current Medications Acetaminophen (Tylenol) 650 mg PO Q4H PRN PRN Reason: Pain (Mild 1-3)/fever Last Admin: 05/06/20 22:14 Dose: 650 mg Documented by: Amlodipine Besylate (Norvasc) 5 mg PO DAILY [facility] Last Admin: 05/07/20 09:49 Dose: 5 mg Documented by: Atenolol (Tenormin) 50 mg PO DAILY [facility] Last Admin: 05/07/20 09:49 Dose: 50 mg Documented by: Atorvastatin Calcium (Lipitor) 10 mg PO BEDTIME [facility] Last Admin: 05/06/20 22:00 Dose: 10 mg Documented by: Ciprofloxacin (Ciprofloxacin Hcl) 500 mg PO BID [facility] Last Admin: 05/07/20 08:02 Dose: 500 mg Documented by: Promethazine HCl 12.5 mg/ (Sodium Chloride) 50.5 mls @ 200 mls/hr IV Q6H PRN PRN Reason: Nausea/Vomiting Insulin Human Lispro (Humalog) 0 unit SUBCUT QIDACANDBED [facility]; Protocol Last Admin: 05/07/20 07:56 Dose: Not Given Documented by: Lactobacillus Rhamnosus (Culturelle) 2 cap PO BID [facility] Last Admin: 05/07/20 08:01 Dose: 2 cap Documented by: Levothyroxine Sodium (Synthroid) 88 mcg PO ACBREAKFAST [facility] Last Admin: 05/07/20 07:59 Dose: 88 mcg Documented by: Lisinopril (Prinivil) 10 mg PO DAILY [facility] Last Admin: 05/07/20 09:49 Dose: 10 mg Documented by: Metronidazole (Metronidazole) 250 mg PO Q6H [facility] Last Admin: 05/07/20 04:29 Dose: 250 mg Documented by: Morphine Sulfate (Morphine) 4 mg IVPUSH Q2H PRN PRN Reason: Pain (severe 7-10) Last Admin: 05/03/20 08:50 Dose: 4 mg Documented by: Ondansetron HCl (Zofran Odt) 4 mg PO Q6H PRN PRN Reason: Nausea able to take PO Last Admin: 05/05/20 04:21 Dose: 4 mg Documented by: Oxycodone HCl (Oxycodone) 10 mg PO Q4H PRN PRN Reason: Pain (moderate 4-6) Last Admin: 05/07/20 04:29 Dose: 10 mg Documented by: Pantoprazole Sodium (Protonix) 40 mg PO BIDAC [facility] Last Admin: 05/07/20 07:59 Dose: 40 mg Documented by: Discontinued Medications Acetaminophen (Tylenol) 650 mg PO NOW ONE Stop: 05/02/20 21:21 Last Admin: 05/02/20 21:30 Dose: 650 mg Documented by: Bisacodyl (Dulcolax) 10 mg PO ONETIME ONE Stop: 05/03/20 11:01 Last Admin: 05/03/20 11:22 Dose: 10 mg Documented by: Bisacodyl (Dulcolax) 10 mg PO ONETIME ONE Stop: 05/03/20 20:01 Cephalexin (Keflex) 500 mg PO Q6HR [facility] Last Admin: 05/03/20 09:36 Dose: 500 mg Documented by: Dextrose/Water (Dextrose 50% In Water) 50 ml IV ONETIME ONE Stop: 05/02/20 23:00 Last Admin: 05/03/20 00:44 Dose: Not Given Documented by: Famotidine (Pepcid) 20 mg PO BID [facility] Last Admin: 05/03/20 08:47 Dose: 20 mg Documented by: Fentanyl (Sublimaze) 50 mcg IVPUSH ONETIME ONE Stop: 05/02/20 17:36 Last Admin: 05/02/20 18:11 Dose: 50 mcg Documented by: Fluconazole (Diflucan) 100 mg PO ONETIME ONE Stop: 05/04/20 16:31 Last Admin: 05/04/20 16:34 Dose: 100 mg Documented by: Hydromorphone HCl (Dilaudid) 0.5 mg IVPUSH ONETIME ONE Stop: 05/02/20 19:05 Last Admin: 05/02/20 19:14 Dose: 0.5 mg Documented by: Hydromorphone HCl (Dilaudid) 0.5 mg IVPUSH ONETIME ONE Stop: 05/02/20 20:43 Last Admin: 05/02/20 20:54 Dose: 0.5 mg Documented by: Sodium Chloride (Normal Saline) 1,000 mls @ 500 mls/hr IV ASDIRECTED [facility] Last Admin: 05/02/20 18:06 Dose: 500 mls/hr Documented by: Sodium Chloride (Normal Saline) 80 mls @ 3 mls/sec IV ASDIRECTED [facility] Last Admin: 05/02/20 19:32 Dose: 3 mls/sec Documented by: Potassium Chloride/Sodium Chloride (Normal Saline With 20 Meq Kcl) 1,000 mls @ 100 mls/hr IV ASDIRECTED [facility] Last Admin: 05/05/20 10:51 Dose: 100 mls/hr Documented by: Ciprofloxacin/Dextrose 400 mg/ (Premix) 200 mls @ 200 mls/hr IV Q12H [facility] Last Admin: 05/05/20 23:06 Dose: 200 mls/hr Documented by: Metronidazole 500 mg/ Premix 100 mls @ 100 mls/hr IV Q8H [facility] Last Admin: 05/06/20 03:49 Dose: 100 mls/hr Documented by: Sodium Chloride (Normal Saline) 75 mls @ 3 mls/sec IV ASDIRECTED [facility] Last Admin: 05/04/20 12:02 Dose: 3 mls/sec Documented by: Influenza Virus Vaccine (Fluzone High-Dose Quad ) 240 mcg IM .ONCE ONE Stop: 05/06/20 09:01 Last Admin: 05/06/20 08:34 Dose: Not Given Documented by: Iopamidol (Isovue-300 (61%)) 100 ml IV . DIRECTED [facility] Last Admin: 05/02/20 19:32 Dose: 100 ml Documented by: Iopamidol (Isovue-300 (61%)) 100 ml IV . DIRECTED [facility] Last Admin: 05/04/20 12:02 Dose: 100 ml Documented by: Metoclopramide HCl (Reglan) 5 mg IV ONETIME ONE Stop: 05/02/20 17:36 Last Admin: 05/02/20 18:08 Dose: 5 mg Documented by: Pantoprazole Sodium (Protonix Iv) 40 mg IVPUSH Q12H [facility] Last Admin: 05/06/20 10:08 Dose: 40 mg Documented by: Polyethylene Glycol (Miralax) 238 gm PO ONETIME ONE Stop: 05/03/20 17:01 Potassium Chloride (Klor-Con M20) 40 meq PO ONETIME ONE Stop: 05/05/20 15:01 Last Admin: 05/05/20 15:37 Dose: 40 meq Documented by: Potassium Chloride (Klor-Con M20) 40 meq PO ONETIME ONE Stop: 05/06/20 09:01 Last Admin: 05/06/20 10:08 Dose: 40 meq Documented by: Sodium Chloride (Saline Flush) 10 ml FLUSH ASDIRECTED PRN PRN Reason: Keep Vein Open Last Admin: 05/02/20 19:32 Dose: 10 ml Documented by: Sodium Chloride (Saline Flush) 10 ml FLUSH ONETIME ONE Stop: 05/04/20 11:53 Last Admin: 05/04/20 12:02 Dose: 10 ml Documented by: Vancomycin HCl (Vancocin 250 Mg/5 Ml Soln) 500 mg PO QID [facility] Vancomycin HCl (Vancocin 250 Mg/5 Ml Soln) 125 mg PO QID [facility] Last Admin: 05/03/20 05:01 Dose: 125 mg Documented by: Vancomycin HCl (Vancomycin) Confirm Administered Dose 1 gm .ROUTE .STK-MED ONE Stop: 05/03/20 00:08 Last Admin: 05/03/20 07:29 Dose: Not Given Documented by: Vancomycin HCl (Vancocin 125 Mg Capsule) 125 mg PO QID [facility] Last Admin: 05/03/20 09:36 Dose: 125 mg Documented by: - Exam Quality Assessment: Reports: DVT Prophylaxis General: Reports: Alert, Oriented, Cooperative, Mild Distress Lungs: Reports: Clear to Auscultation, Normal Respiratory Effort Cardiovascular: Reports: Regular Rate, Regular Rhythm, No Murmurs GI/Abdominal Exam: Soft, No Organomegaly, Tender. No: Distended, Guarding, Rigid, Rebound Extremities: Non-Tender, Pedal Edema
== END 2020-05-07 12:15 | disposition home or self-care (01) | DRG 392 ==
LOC: JP.ED 15:46 → JP.ICU 22:54 → JP.MS 05-04 07:58
PROVIDERS: ADMIT Family Medicine; ATTEND Hospitalist
DX: K52.9 Noninfective gastroenteritis and colitis, unspecified (principal); K92.1 Melena; D62 Acute posthemorrhagic anemia; N39.0 Urinary tract infection, site not specified; K21.9 Gastro-esophageal reflux disease without esophagitis; K57.90 Diverticulosis of intestine, part unspecified, without perforation or abscess without bleeding; E11.9 Type 2 diabetes mellitus without complications; I10 Essential (primary) hypertension; E03.9 Hypothyroidism, unspecified; Z87.440 Personal history of urinary (tract) infections; E78.00 Pure hypercholesterolemia, unspecified; Z20.828 Contact with and (suspected) exposure to other viral communicable diseases; K57.30 Diverticulosis of large intestine without perforation or abscess without bleeding; Z98.890 Other specified postprocedural states; R32 Unspecified urinary incontinence; M19.90 Unspecified osteoarthritis, unspecified site; E89.0 Postprocedural hypothyroidism; G89.29 Other chronic pain; M54.9 Dorsalgia, unspecified; M48.061 Spinal stenosis, lumbar region without neurogenic claudication; Z96.643 Presence of artificial hip joint, bilateral; Z90.89 Acquired absence of other organs; Z90.49 Acquired absence of other specified parts of digestive tract; Z90.710 Acquired absence of both cervix and uterus; Z79.82 Long term (current) use of aspirin; Z79.899 Other long term (current) drug therapy; Z88.5 Allergy status to narcotic agent; Z91.048 Other nonmedicinal substance allergy status; Z91.040 Latex allergy status; Z91.09 Other allergy status, other than to drugs and biological substances; Z79.890 Hormone replacement therapy; Z87.11 Personal history of peptic ulcer disease; Z98.1 Arthrodesis status; Z87.891 Personal history of nicotine dependence
CPT/HCPCS: 36415; 74018 ×2; 74177; 80048; 80076; 81001; 83605; 83690; 84484; 85025; 86850; 86900; 86901; 87040; 87086; 93005; 96361; 96374; 96375; 96376; 99285; A9270; J1170 ×2; J2765; J3010; J7030; J7050; Q9967; 80053; 82962; 84443; 85018; 87046; 87493; 87899; 93010; 94762; 99231; 99232; 99239; 99284; C9113; J0744; J1815; J2270; J3480; J3490; U0002

== ENCOUNTER 2023-05-05 17:44 | Emergency (ER) | payer MEDICARE, OTHER ==
[2023-05-05 18:58] LABS: BASOPHILS PERCENT AUTO 0.3 % (0.1-1.3); EOSINOPHILS ABSOLUTE AUTO 0.14 K/uL (0.00-0.40); HEMATOCRIT 34.8 % (34.3-46.0); HEMOGLOBIN 11.4 g/dL (11.2-15.5); IMMATURE GRAN PERCENT AUTO 0.1 % (0.0-0.7); LYMPHOCYTES PERCENT AUTO 14.5 % (11.4-47.7); MEAN CORPUSCULAR HEMOGLOBIN 30.2 pg (31.6-35.5); MEAN CORPUSCULAR HGB CONC 32.8 g/dL (31.6-35.5); MEAN CORPUSCULAR VOLUME 92.1 fL (81.4-99.0); MONOCYTES ABSOLUTE AUTO 0.95 K/uL (0.20-0.90); MONOCYTES PERCENT AUTO 13.8 % (3.3-12.6); NEUTROPHILS ABSOLUTE AUTO 4.76 K/uL (1.0-7.6); NEUTROPHILS PERCENT AUTO 69.3 % (40.0-78.1); PLATELET COUNT,PLT 173 K/uL (130-375); RED BLOOD CELL COUNT 3.78 M/uL (3.77-5.24); WHITE BLOOD CELL COUNT,WBC 6.9 K/uL (3.2-11.0)
[2023-05-05 18:59] LABS: BASOPHILS ABSOLUTE AUTO 0.02 K/uL (0.00-0.10); IMMATURE GRAN ABSOLUTE AUTO 0.01 K/uL (0.00-0.23)
[2023-05-05 19:14] LABS: ANION GAP 11.7 mmol/L (5.0-14.0); CALCIUM 8.8 mg/dL (8.5-10.1); CREATININE 0.7 mg/dL (0.6-1.0); EST CRCL DRUG DOSING (CG) 60.89 mL/min; POTASSIUM,K 3.7 mmol/L (3.6-5.2)
[2023-05-05] MEDS ORDERED: Sodium Chloride 0.9% 1,000 ML IV ONE (19:34)
[2023-05-05] MEDS ORDERED: Ketorolac 30 MG/ML SDV IVPUSH ONE (19:35)
[2023-05-05 20:00] LABS: STREP A BY PCR NOT DETECTED (NOT DETECT)
[2023-05-05 20:13] LABS: CORONAVIRUS COVID-19 NAA POSITIVE (NEGATIVE)
== END 2023-05-05 21:23 | disposition home or self-care (01) ==
LOC: JP.ED 17:44
DX: U07.1 COVID-19 (principal); E78.00 Pure hypercholesterolemia, unspecified; I10 Essential (primary) hypertension; K21.9 Gastro-esophageal reflux disease without esophagitis; E03.9 Hypothyroidism, unspecified; Z79.899 Other long term (current) drug therapy; Z88.5 Allergy status to narcotic agent; Z91.040 Latex allergy status; Z91.048 Other nonmedicinal substance allergy status; Z91.09 Other allergy status, other than to drugs and biological substances
CPT/HCPCS: 36415; 80048; 85025; 87651; 87804; 96361; 96374; 99284; J1885; J7030; U0002; 99283

== ENCOUNTER 2024-09-11 07:27 | Day surgery (SDC) | payer MEDICARE, OTHER ==
[~2024-09-11 07:27] MED LIST: Propofol 200 MG/20 ML SDV ONE; fentaNYL 50 MCG/ML SDV ONE
[2024-09-11] MEDS: Lactated Ringers 1,000 ML IV SCH (08:28)
== END 2024-09-11 10:20 | disposition home or self-care (01) ==
LOC: JP.SDS 07:27
PROVIDERS: ATTEND Family Medicine
DX: K57.30 Diverticulosis of large intestine without perforation or abscess without bleeding (principal)
CPT/HCPCS: 45378; J2704; J3010; J7120